=== PATIENT | male | born 1945 | race Hispanic/Latino ===

== ENCOUNTER 2022-06-15 12:33 | Inpatient (IN) | payer OTHER ==
[2022-06-15 13:09] LABS: Absolute Lymphocytes (CBC) 1.4 K/uL (0.7-4.9); Hematocrit 35.9 % (39.6-49.0); Lymphocytes % 17.8 % (15.3-44.8); MCV 93.7 fL (80-100); MPV 8.2 fL (7.6-11.3); RBC Red Blood Cell Count 3.83 M/uL (4.33-5.43)
--- NOTE | 2022-06-15 13:12 | RAD REPORT ---
EXAM DESCRIPTION: RAD - Chest Single View - 06/15/2022 12:55 pm CLINICAL HISTORY: cva COMPARISON: ABDOMEN 1 VIEW KUB dated 03/22/2015 FINDINGS: Lines: None. Lungs: No evidence of edema or pneumonia. Low lung volumes . Pleural: No significant pleural effusions or pneumothorax. Cardiac: The heart size is within normal limits. Mediastinum: Within normal limits. Bones: No acute fractures. Other: None IMPRESSION: No acute cardiopulmonary disease. Low lung volumes.
[2022-06-15 13:15] LABS: Protime INR 1.08
--- NOTE | 2022-06-15 13:16 | RAD REPORT ---
EXAM DESCRIPTION: CT - Head Brain Wo Cont - 06/15/2022 12:45 pm CLINICAL HISTORY: Stroke, follow up COMPARISON: Head angio dated 06/15/2022 TECHNIQUE: All CT scans are performed using dose optimization technique as appropriate and may inclu de automated exposure control or mA/KV adjustment according to patient size. FINDINGS: No intracranial hemorrhage, hydrocephalus or extra-axial fluid collection.No areas of brai n edema or evidence of midline shift. The paranasal sinuses and mastoids are clear. The calvarium is intact. IMPRESSION: No acute intracranial abnormality.
--- NOTE | 2022-06-15 13:22 | RAD REPORT ---
EXAM DESCRIPTION: CT - Head angio - 06/15/2022 12:45 pm CLINICAL HISTORY: Stroke, follow up COMPARISON: No comparisons TECHNIQUE: CT angiography of the head was performed with MIPs. All CT scans are performed using dose optimization technique as appropriate and may include automated exposure control or mA/KV adjustment according to patient size. FINDINGS: Anterior circulation: No aneurysm or large vessel occlusion. No hemodynamically significant stenosis. No arteriovenous malf ormation identified. Hypoplastic right A1 and A2 segment. Posterior circulation: No aneurysm or large vessel occlusion. No hemodynamically significant stenosis. No arteriovenous malf ormation identified. IMPRESSION: No significant flow abnormality is detected.
--- NOTE | 2022-06-15 13:24 | RAD REPORT ---
EXAM DESCRIPTION: CT - Neck Angio - 06/15/2022 12:45 pm CLINICAL HISTORY: Neuro deficit, acute, stroke suspected COMPARISON: No comparisons TECHNIQUE: CT angiography of the neck vessels was performed with MIPs. All CT scans are performed using dose optimization technique as appropriate and may include automated exposure control or mA/KV adjustment according to patient size. FINDINGS: A left aortic arch is identified with normal three vessel configuration of the great vesse ls. No significant flow abnormality is seen of the common carotid bilaterally. Mild atherosclerotic plaqu e is present at both of the carotid bifurcations. No significant stenosis is identified involving the cervical segments of both internal carotid arteri es. Normal flow is seen within both vertebral arteries. Multilevel degenerative changes are present in the spine. IMPRESSION: No significant flow abnormality of the neck vessels is identified.
[2022-06-15 13:29] LABS: Albumin 3.7 g/dL (3.4-5.0); Bilirubin Total 0.6 mg/dL (0.2-1.0); Potassium 3.5 mmol/L (3.5-5.1); Protein, Total 7.1 g/dL (6.4-8.2); Troponin High Sensitivity 8.6 pg/mL (<58.9)
[2022-06-15] MEDS ORDERED: ASPIRIN 325 MG TAB ONE (14:23)
--- NOTE | 2022-06-15 14:30 | EKG ---
Test Date: 2022-06-15 Test Time: 12:50:41 Animal Behaviourist: SAUD MEASUREMENT RESULTS: Intervals: Rate: 77 CO: 188 QRSD: 98 QT: 394 QTc: 445 [place]: P: 48 CO: 188 QRS: -41 T: 54 INTERPRETIVE STATEMENTS: Normal sinus rhythm Left axis deviation Abnormal ECG Compared to ECG 06/25/1999 08:16:00 No significant changes Electronically Signed On 06-15-22 14:30:13 CORPORATE MEETING PLANNER by Luis Alberto Barroso
[2022-06-15] MEDS ORDERED: PROPRANOLOL HCL 80 MG SA CAP PO ONE (15:00)
--- NOTE | 2022-06-15 16:36 | RAD REPORT ---
EXAM DESCRIPTION: US - Extremity Venous Uni Ltd - 06/15/2022 4:29 pm CLINICAL HISTORY: Pain COMPARISON: None. TECHNIQUE: Real-time sonographic evaluation of the right lower extremity deep venous system was perf ormed. FINDINGS: Normal compressibility, flow augmentation, phasic flow and spontaneous flow is identified in the right lower extremity deep venous system. No intraluminal filling defects seen. Guo's cyst a t the popliteal fossa measuring 3.1 x 1.8 cm. IMPRESSION: No DVT in the right lower extremity. Guo's cyst at the popliteal fossa.
[2022-06-15] MEDS ORDERED: HYDROCODONE/APAP 5/325 MG TAB ONE (17:50)
[2022-06-15] MEDS ORDERED: ACETAMINOPHEN 500 MG TAB ONE (18:06)
--- NOTE | 2022-06-15 21:25 | ER ---
Nurse's Notes [facility] Name: Connor Summers Age: 77 yrs Sex: Male : 1945 Arrival Date: 06/15/2022 Time: 12:36 Bed 8 Private MD: Diagnosis: CVA Presentation: 06/15 12:37 Chief complaint: Patient states: States he feels weak, but wants to go home. L sided ll1 weakness per EMS. EMS states: Fingerstick 170's. HTN en route. B 18 G IV's. Code stroke called upon arrival. To CT via EMS stretcher. Coronavirus screen: Vaccine status: Patient reports receiving the 2nd dose of the covid vaccine. Client denies travel out of the [place] in the last 14 days. At this time, the client does not indicate any symptoms associated with coronavirus-19. Ebola Screen: Patient denies travel to an Ebola-affected area in the 21 days before illness onset. Initial Sepsis Screen: Does the patient meet any 2 criteria? No. Patient's initial sepsis screen is negative. Does the patient have a suspected source of infection? No. Patient's initial sepsis screen is negative. Risk Assessment: Do you want to hurt yourself or someone else? Patient reports no desire to harm self or others. Onset of symptoms was June 14, 2022. 12:37 Method Of Arrival: EMS ll1 12:37 Acuity: BRICE 2 ll1 13:16 An acute neurological deficit is present. The charge nurse has been notified. ll1 13:19 The patients blood glucose was checked before arriving to the hospital and was found to ll1 be normal. Triage Assessment: 12:39 General: Appears distressed, uncomfortable, Behavior is cooperative, appropriate for ll1 age, restless. Neuro: Reports weakness in left arm and left leg. Cardiovascular: No deficits noted. Respiratory: No deficits noted. GI: No deficits noted. Stroke Activation: Symptom onset > 6 hours Physician: Stroke Attending; Name: n/a; Notified At: 12:35; Arrived At: N/A Physician: Chief Stroke Resident; Name: n/a; Notified At: 12:35; Arrived At: N/A Physician: Stroke Resident; Name: n/a; Notified At: 12:35; Arrived At: N/A Physician: ED Attending; Name: Ja; Notified At: 12:35; Arrived At: 12:35 Physician: ED Resident; Name: n/a; Notified At: 12:35; Arrived At: N/A Historical: - Allergies: 12:37 HYDROCODONE; ll1 12:37 UNKNOWN MUSCLE RELAXANT; ll1 - PMHx: 12:37 Diabetes - NIDDM; Hypertension; ll1 - PSHx: 12:37 Unable to Obtain; ll1 - Immunization history:: Adult Immunizations up to date. - Social history:: Smoking status: Patient denies any tobacco usage or history of. - Family history:: not pertinent. Screenin:39 Abuse screen: Denies threats or abuse. Nutritional screening: No deficits noted. ll1 Tuberculosis screening: No symptoms or risk factors identified. Assessment: 13:14 VAN Scoring: Arm Drift: Severe drift Visual Disturbance: No visual disturbance noted. ll1 Aphasia: No aphasia noted. Neglect: No neglect noted. Patient has been NPO before screening. The patient is alert, and able to follow commands. The patient does not exhibit slurred or garbled speech. The patient is not exhibiting difficulty speaking. The patient does not exhibit difficulty understanding words. The patient is able to swallow own secretions with no drooling or need for suction. Patient tolerated one teaspoon of water. No drooling, immediate coughing, gurgling, or clearing of the throat was noted. The patient tolerated 90mL of water. No drooling, immediate coughing, gurgling, or clearing of the throat was noted. The patient passed the bedside swallow screening. Oral medications may be given as ordered. Contact Physician for further diet orders. Provider notified of bedside swallow screening results: David Peres MD. TNKase (Tenecteplase) Screening: Contraindications: Patient reports onset of signs and symptoms of stroke greater than 6 hours ago:. 14:15 Reassessment: No changes from previously documented assessment. Patient and/or family ll1 updated on plan of care and expected duration. Pain level reassessed. Patient is alert, oriented x 3, equal unlabored respirations, skin warm/dry/pink. 15:15 Reassessment: No changes from previously documented assessment. Patient and/or family ll1 updated on plan of care and expected duration. Pain level reassessed. 16:15 Reassessment: No changes from previously documented assessment. Patient and/or family ll1 updated on plan of care and expected duration. Pain level reassessed. 17:15 Reassessment: No changes from previously documented assessment. Patient and/or family ll1 updated on plan of care and expected duration. Pain level reassessed. Patient is alert, oriented x 3, equal unlabored respirations, skin warm/dry/pink. 18:15 Reassessment: No changes from previously documented assessment. Patient and/or family ll1 updated on plan of care and expected duration. Pain level reassessed. 19:10 Reassessment: Patient appears in no apparent distress at this time. Patient and/or jb4 family updated on plan of care and expected duration. Pain level reassessed. Patient is alert, oriented x 3, equal unlabored respirations, skin warm/dry/pink. 20:29 Reassessment: Pt and family report that pt range of motion and strength is back to jb4 baseline. 21:19 Reassessment: Patient appears in no apparent distress at this time. Patient and/or jb4 family updated on plan of care and expected duration. Pain level reassessed. Patient is alert, oriented x 3, equal unlabored respirations, skin warm/dry/pink. 22:00 Reassessment: Patient appears in no apparent distress at this time. Patient and/or jb4 family updated on plan of care and expected duration. Pain level reassessed. Patient is alert, oriented x 3, equal unlabored respirations, skin warm/dry/pink. 23:00 Reassessment: Patient appears in no apparent distress at this time. Patient and/or jb4 family updated on plan of care and expected duration. Pain level reassessed. Patient is alert, oriented x 3, equal unlabored respirations, skin warm/dry/pink. Vital Signs: 13:11 BP 152 / 107; Pulse 80; Resp 18; Temp 98.0; Pulse Ox 96% ; Pain 0/10; ll1 14:30 BP 170 / 107; Pulse 77; Resp 17; Pulse Ox 97% on R/A; ll1 15:30 BP 143 / 63; Pulse 71; Resp 17; Pulse Ox 98% on R/A; ll1 16:15 BP 159 / 78; Pulse 71; Resp 17; Pulse Ox 97% on R/A; ll1 17:36 BP 151 / 69; Pulse 66; Resp 17; Pulse Ox 96% on R/A; ll1 18:24 BP 136 / 68; Pulse 64; Resp 17; Pulse Ox 98% ; ll1 19:15 BP 140 / 67; Pulse 62; Resp 13; Pulse Ox 98% on R/A; jb4 20:45 BP 135 / 68; Pulse 58; Resp 13; Pulse Ox 97% on R/A; jb4 06/16 00:51 Weight 97.52 kg; vc1 12:44 BP 155 / 72; Pulse 67; Resp 18; Pulse Ox 99% on R/A; ld1 NIH Stroke Scale Scores: 06/15 13:14 NIHSS Score: 10 ll1 20:29 NIHSS Score: 3 jb4 ED Course: 12:36 Patient arrived in ED. bd 12:36 David Peres MD is Attending Physician. rt 12:36 Arm band placed on Patient placed in an exam room, on a stretcher. ll1 12:39 Triage completed. ll1 12:46 Head Brain Wo Cont CT In Process Unspecified. EDMS 12:46 Elizabeth Decker, RN is Primary Nurse. ll1 12:47 CT Head Angio In Process Unspecified. EDMS 12:47 CT Neck Angio In Process Unspecified. EDMS 12:57 Chest Single View XRAY In Process Unspecified. EDMS 13:00 Inserted saline lock: 22 gauge in right antecubital area, using aseptic technique. ll1 Blood collected. 13:19 Patient has correct armband on for positive identification. Bed in low position. Call ll1 light in reach. Side rails up X2. Client placed on continuous cardiac and pulse oximetry monitoring. NIBP monitoring applied. quality assurance monitor on. 15:45 intiated transfer to [place] [facility]. bd 15:52 faxed clinicals to [place] [facility] as requested by Fabiana from transfer center. bd 16:31 US Extremity Venous Unilateral Ltd In Process Unspecified. EDMS 19:12 Attending Physician role handed off by David Peres MD sp3 19:12 Lisandra Macias MD is Attending Physician. sp3 20:15 Contacted the [facility] spoke with Bee to get an update on the transfer. She mw2 stated "we are waiting for the doctor to call back.". 21:23 Oleksandr Guerra MD is Hospitalizing Provider. sp3 06/16 12:43 No provider procedures requiring assistance completed. Patient admitted, IV remains in ld1 place. Administered Medications: 06/15 14:34 Drug: Aspirin 325 mg Route: PO; ll1 18:01 Follow up: Response: No adverse reaction ll1 14:34 Drug: INDeral (propranolol) 80 mg Route: PO; ll1 18:01 Follow up: Response: No adverse reaction ll1 17:50 CANCELLED (Patient Refused): [place] (HYDROcodone-acetaminophen) 5 mg-325 mg 1 tabs PO rt once 18:07 Drug: Tylenol 1000 mg Route: PO; ll1 Medication: 12:40 VIS not applicable for this client. ll1 Outcome: 21:24 Decision to Hospitalize by Provider. sp3 06/16 12:43 Admitted to Med/surg accompanied by tech, via wheelchair, room 230, with chart, Report ld1 called to ARTHUR Tejada Condition: stable Instructed on the need for admit. 13:01 Patient left the ED. mb9 NIH Stroke Scale - NIH Stroke Score Date: 06/15/2022 Time: 13:14 Total Score = 10 1a. Level of Consciousness (LOC) - 0(Alert) 1b. Level of Consciousness (LOC) (Month \\T\\ Age) - 0(Both) 1c. LOC Commands (Open \\T\\ Closes Eyes/Returned Goods Receiving Clerk) - 0(Both) 2. Best Gaze (Lateral Gaze Paresis) - 0(Normal) 3. Visual Field Loss - 0(No visual loss) 4. Facial Palsy - 1(Minor Paralysis) 5a. Left Arm: Motor (10-second hold) - 3(No effort against gravity) 5b. Right Arm: Motor (10-second hold) - 0(No drift) 6a. Left Leg: Motor (5-second hold - always test supine) - 3(No effort against gravity) 6b. Right Leg: Motor (5-second hold - always test supine) - 0(No drift) 7. Limb Ataxia (finger/nose \\T\\ heel/guzmán - test with eyes open) - 1(Present in one limb) 8. Sensory Loss (pinprick arms/legs/face) - 1(Mild to moderate loss) 9. Best Language: Aphasia (description/naming/reading) - 0(No aphasia) 10. Dysarthria (speech clarity - read or repeat words) - 0(Normal) 11. Extinction and Inattention (visual/tactile/auditory/spatial/personal) - 1(Present) Initials: ll1 NIH Stroke Scale - NIH Stroke Score Date: 06/15/2022 Time: 20:29 Total Score = 3 1a. Level of Consciousness (LOC) - 0(Alert) 1b. Level of Consciousness (LOC) (Month \\T\\ Age) - 0(Both) 1c. LOC Commands (Open \\T\\ Closes Eyes/Returned Goods Receiving Clerk) - 0(Both) 2. Best Gaze (Lateral Gaze Paresis) - 0(Normal) 3. Visual Field Loss - 0(No visual loss) 4. Facial Palsy - 2(Partial paralysis) 5a. Left Arm: Motor (10-second hold) - 0(No drift) 5b. Right Arm: Motor (10-second hold) - 0(No drift) 6a. Left Leg: Motor (5-second hold - always test supine) - 0(No drift) 6b. Right Leg: Motor (5-second hold - always test supine) - 0(No drift) 7. Limb Ataxia (finger/nose \\T\\ heel/guzmán - test with eyes open) - 0(Absent) 8. Sensory Loss (pinprick arms/legs/face) - 1(Mild to moderate loss) 9. Best Language: Aphasia (description/naming/reading) - 0(No aphasia) 10. Dysarthria (speech clarity - read or repeat words) - 0(Normal) 11. Extinction and Inattention (visual/tactile/auditory/spatial/personal) - 0(No abnormality) Initials: jb4 Signatures: Dispatcher [employer] EDMS Shelia Warner James RN RN jb4 Rafal Quiñones mw2 Elizabeth Decker RN RN ll1 Maria Elena Gautam RN RN ld1 Lisandra Macias MD MD sp3 Christine Cifuentes RN RN vc1 Beatriec Trotter RN RN mb9 David Peres MD MD rt Corrections: (The following items were deleted from the chart) 12:45 12:21 BP 82 / 48; Pulse 101bpm; Resp 18bpm; Pulse Ox 99% RA; ld1 ld1
--- NOTE | 2022-06-15 21:25 | EDPHYS ---
Physician Documentation [facility] Name: Connor Summers Age: 77 yrs Sex: Male : 1945 Arrival Date: 06/15/2022 Time: 12:36 Bed 8 Private MD: ED Physician Lisandra Macias HPI: 06/15 14:18 This 77 yrs old Male presents to ER via EMS with complaints of S/S of Possible rt Stroke. 14:18 The patient's problem is reported as a facial droop, on left. Onset: The rt symptoms/episode began/occurred last night. Duration: This was a single incident. The symptoms are alleviated by nothing. The symptoms are aggravated by nothing. Associated signs and symptoms: The patient has no apparent associated signs or symptoms. Severity of symptoms: At their worst the symptoms were moderate. Presents to the ED with signs concerning for stroke. Patient developed a left-sided facial droop as well as drooling last night. Is a progressively worsening left-sided weakness since then. Patient denies other acute complaints at this time. Symptoms are moderate severity, no other aggravating alleviating factors.. Historical: - Allergies: 12:37 HYDROCODONE; ll1 12:37 UNKNOWN MUSCLE RELAXANT; ll1 - PMHx: 12:37 Diabetes - NIDDM; Hypertension; ll1 - PSHx: 12:37 Unable to Obtain; ll1 - Immunization history:: Adult Immunizations up to date. - Social history:: Smoking status: Patient denies any tobacco usage or history of. - Family history:: not pertinent. ROS: 14:18 Constitutional: Negative for fever, chills, and weight loss, Eyes: Negative for injury, rt pain, redness, and discharge, ENT: Negative for injury, pain, and discharge, Neck: Negative for injury, pain, and swelling, Cardiovascular: Negative for chest pain, palpitations, and edema, Respiratory: Negative for shortness of breath, cough, wheezing, and pleuritic chest pain, MS/Extremity: Negative for injury and deformity, Skin: Negative for injury, rash, and discoloration, Psych: Negative for depression, anxiety, suicide ideation, homicidal ideation, and hallucinations. 14:18 Neuro: Positive for numbness, weakness. Exam: 14:18 Radiologist reports: No bleed or filling defect. rt 14:18 Constitutional: This is a well developed, well nourished patient who is awake, alert, and in no acute distress. Head/Face: Normocephalic, atraumatic. Eyes: Pupils equal round and reactive to light, extra-ocular motions intact. Lids and lashes normal. Conjunctiva and sclera are non-icteric and not injected. Cornea within normal limits. Periorbital areas with no swelling, redness, or edema. ENT: Nares patent. No nasal discharge, no septal abnormalities noted. Tympanic membranes are normal and external auditory canals are clear. Oropharynx with no redness, swelling, or masses, exudates, or evidence of obstruction, uvula midline. Mucous membranes moist. Neck: Trachea midline, no thyromegaly or masses palpated, and no cervical lymphadenopathy. Supple, full range of motion without nuchal rigidity, or vertebral point tenderness. No Meningismus. Chest/axilla: Normal chest wall appearance and motion. Nontender with no deformity. No lesions are appreciated. Cardiovascular: Regular rate and rhythm with a normal S1 and S2. No gallops, murmurs, or rubs. Normal PMI, no JVD. No pulse deficits. Respiratory: Lungs have equal breath sounds bilaterally, clear to auscultation and percussion. No rales, rhonchi or wheezes noted. No increased work of breathing, no retractions or nasal flaring. Abdomen/GI: Soft, non-tender, with normal bowel sounds. No distension or tympany. No guarding or rebound. No evidence of tenderness throughout. Skin: Warm, dry with normal turgor. Normal color with no rashes, no lesions, and no evidence of cellulitis. MS/ Extremity: Pulses equal, no cyanosis. Neurovascular intact. Full, normal range of motion. Psych: Awake, alert, with orientation to person, place and time. Behavior, mood, and affect are within normal limits. 14:18 ECG was reviewed by the Attending Physician. 14:18 Neuro: Left-sided facial droop, left-sided numbness,/5 strength in left upper and left lower extremity with sensory deficits on the extra extremities, strength intact in right upper and right lower extremities.. Vital Signs: 13:11 BP 152 / 107; Pulse 80; Resp 18; Temp 98.0; Pulse Ox 96% ; Pain 0/10; ll1 14:30 BP 170 / 107; Pulse 77; Resp 17; Pulse Ox 97% on R/A; ll1 15:30 BP 143 / 63; Pulse 71; Resp 17; Pulse Ox 98% on R/A; ll1 16:15 BP 159 / 78; Pulse 71; Resp 17; Pulse Ox 97% on R/A; ll1 17:36 BP 151 / 69; Pulse 66; Resp 17; Pulse Ox 96% on R/A; ll1 18:24 BP 136 / 68; Pulse 64; Resp 17; Pulse Ox 98% ; ll1 19:15 BP 140 / 67; Pulse 62; Resp 13; Pulse Ox 98% on R/A; jb4 20:45 BP 135 / 68; Pulse 58; Resp 13; Pulse Ox 97% on R/A; jb4 06/16 00:51 Weight 97.52 kg; vc1 12:44 BP 155 / 72; Pulse 67; Resp 18; Pulse Ox 99% on R/A; ld1 NIH Stroke Scale Scores: 06/15 13:14 NIHSS Score: 10 ll1 20:29 NIHSS Score: 3 jb4 MDM: 12:39 Patient medically screened. rt 14:28 Differential diagnosis: CVA, TIA, metabolic disorder, drug effects. Data reviewed: rt vital signs, nurses notes, lab test result(s), EKG, radiologic studies. 14:28 ED course: Presents to the ED with signs, symptoms consistent with a stroke. Symptoms rt started last night, he is outside of the window for tPA. There is no large vessel occlusion noted on imaging. Patient will be admitted here or transfer to the OR for further care. Aspirin will be given.. 20:12 ED course: Patient signed out to me by daytime physician. 77-year-old male who sp3 presented with left-sided motor weakness and facial droop on the left side as well. Initial NIH stroke scale was 10. CT head and angiogram demonstrated no acute abnormality. We are attempting to get him to the OR hospital and are waiting to hear back. Repeat stroke scale will be administered by the nursing staff to continue his assessment.. 06/15 12:39 Order name: CBC with Diff; Complete Time: 13:24 rt 06/15 12:39 Order name: CMP; Complete Time: 13:31 rt 06/15 12:39 Order name: Troponin High Sensitivity; Complete Time: 13:31 rt 06/15 12:39 Order name: PT-INR; Complete Time: 13:24 rt 06/15 12:39 Order name: Ptt, Activated; Complete Time: 13:24 rt 06/15 13:01 Order name: CREATININE WHOLE BLOOD; Complete Time: 13:24 EDMS 06/16 00:49 Order name: SARS RAPID vc1 06/16 00:51 Order name: Glucose, Ancillary Testing EDMS 06/16 01:38 Order name: SARS-COV-2 Antigen Rapid EDMS 06/16 04:54 Order name: CBC with Automated Diff EDMS 06/16 05:16 Order name: Hemoglobin A1c EDMS 06/16 05:20 Order name: Comprehensive Metabolic Panel EDMS 06/16 05:20 Order name: Lipid Profile EDMS 06/15 12:38 Order name: Head Brain Wo Cont CT; Complete Time: 13:24 rt 06/15 12:38 Order name: CT Head Angio; Complete Time: 13:24 rt 06/15 12:38 Order name: CT Neck Angio; Complete Time: 13:31 rt 06/15 12:39 Order name: Chest Single View XRAY; Complete Time: 13:24 rt 06/15 15:32 Order name: US Extremity Venous Unilateral Ltd; Complete Time: 16:41 rt 06/16 05:20 Order name: T4 Free EDMS 06/16 05:20 Order name: Thyroid Stimulating Hormone EDMS 06/16 07:32 Order name: Glucose, Ancillary Testing EDMS 06/16 09:56 Order name: MRI EDMS 06/16 09:56 Order name: MRI EDMS 06/16 09:56 Order name: MRI EDMS 06/16 11:57 Order name: Glucose, Ancillary Testing EDMS 06/15 12:39 Order name: EKG; Complete Time: 12:39 rt 06/15 12:39 Order name: EKG - Nurse/Tech; Complete Time: 13:11 rt EC:18 Rate is 77 beats/min. Rhythm is regular, Normal Sinus Rhythm with No ectopy. Left axis rt deviation noted. [place] interval is normal. QRS interval is normal. QT interval is normal. No Q waves. T waves are Normal. No ST changes noted. Administered Medications: 14:34 Drug: Aspirin 325 mg Route: PO; ll1 18:01 Follow up: Response: No adverse reaction ll1 14:34 Drug: INDeral (propranolol) 80 mg Route: PO; ll1 18:01 Follow up: Response: No adverse reaction ll1 17:50 CANCELLED (Patient Refused): [place] (HYDROcodone-acetaminophen) 5 mg-325 mg 1 tabs PO rt once 18:07 Drug: Tylenol 1000 mg Route: PO; ll1 Disposition Summary: 06/15/22 21:24 Hospitalization Ordered Hospitalization Status: Inpatient Admission sp3 Provider: Oleksandr Guerra sp3 Condition: Stable sp3 Problem: new sp3 Symptoms: are unchanged sp3 Bed/Room Type: Standard sp3 Location: Telemetry/MedSurg (Inpatient)(06/16/22 12:12) bd Room Assignment: 230(06/16/22 12:12) bd Diagnosis - CVA sp3 Discharge Instructions: - Discharge Summary Sheet ll1 Forms: - SBAR form ll1 - Medication Reconciliation Form sp3 NIH Stroke Scale - NIH Stroke Score Date: 06/15/2022 Time: 13:14 Total Score = 10 1a. Level of Consciousness (LOC) - 0(Alert) 1b. Level of Consciousness (LOC) (Month \T\ Age) - 0(Both) 1c. LOC Commands (Open \T\ Closes Eyes/Driver Engineer) - 0(Both) 2. Best Gaze (Lateral Gaze Paresis) - 0(Normal) 3. Visual Field Loss - 0(No visual loss) 4. Facial Palsy - 1(Minor Paralysis) 5a. Left Arm: Motor (10-second hold) - 3(No effort against gravity) 5b. Right Arm: Motor (10-second hold) - 0(No drift) 6a. Left Leg: Motor (5-second hold - always test supine) - 3(No effort against gravity) 6b. Right Leg: Motor (5-second hold - always test supine) - 0(No drift) 7. Limb Ataxia (finger/nose \T\ heel/guzmán - test with eyes open) - 1(Present in one limb) 8. Sensory Loss (pinprick arms/legs/face) - 1(Mild to moderate loss) 9. Best Language: Aphasia (description/naming/reading) - 0(No aphasia) 10. Dysarthria (speech clarity - read or repeat words) - 0(Normal) 11. Extinction and Inattention (visual/tactile/auditory/spatial/personal) - 1(Present) Initials: ll1 NIH Stroke Scale - NIH Stroke Score Date: 06/15/2022 Time: 20:29 Total Score = 3 1a. Level of Consciousness (LOC) - 0(Alert) 1b. Level of Consciousness (LOC) (Month \T\ Age) - 0(Both) 1c. LOC Commands (Open \T\ Closes Eyes/Driver Engineer) - 0(Both) 2. Best Gaze (Lateral Gaze Paresis) - 0(Normal) 3. Visual Field Loss - 0(No visual loss) 4. Facial Palsy - 2(Partial paralysis) 5a. Left Arm: Motor (10-second hold) - 0(No drift) 5b. Right Arm: Motor (10-second hold) - 0(No drift) 6a. Left Leg: Motor (5-second hold - always test supine) - 0(No drift) 6b. Right Leg: Motor (5-second hold - always test supine) - 0(No drift) 7. Limb Ataxia (finger/nose \T\ heel/guzmán - test with eyes open) - 0(Absent) 8. Sensory Loss (pinprick arms/legs/face) - 1(Mild to moderate loss) 9. Best Language: Aphasia (description/naming/reading) - 0(No aphasia) 10. Dysarthria (speech clarity - read or repeat words) - 0(Normal) 11. Extinction and Inattention (visual/tactile/auditory/spatial/personal) - 0(No abnormality) Initials: jb4 Signatures: Dispatcher [employer] EDMS Shelia Warner Lynsay, RN RN ll1 Lisandra Macias MD MD sp3 Christine Cifuentes RN RN vc1 David Peres MD MD rt Corrections: (The following items were deleted from the chart) 17:50 17:48 [place] (HYDROcodone-acetaminophen) 5 mg-325 mg 1 tabs PO once ordered. ll1 rt 21:50 21:24 Telemetry/MedSurg (Inpatient) sp3 vc1 21:50 21:24 sp3 vc1 22:38 13:35 SARS-COV-2 Antigen Rapid+I.LAB.BRZ ordered. EDCA EDMS 06/16 12:12 06/15 21:50 BR ER HOLD vc1 bd 06/16 12:12 06/15 21:50 ERHOLD- vc1 bd
[2022-06-15] MEDS ORDERED: ONDANSETRON 4 MG/2 ML VIAL IV PRN (23:08)
--- NOTE | 2022-06-15 23:10 | P.HP ---
Certification for Inpatient Patient admitted to: Observation With expected LOS: <2 Midnights Patient will require the following post-hospital care: None Practitioner: I am a practitioner with admitting privileges, knowledge of patient current condition, hospital course, and medical plan of care. Services: Services provided to patient in accordance with Admission requirements found in Title 42 Section 412.3 of the Code of Federal Regulations <AustynjigneshAbdoulaye Eng - Last Filed: 06/15/22 23:06> Patient History Date of Service: 06/15/22 Reason for admission: Rule out CVA History of Present Illness: 77-year-old male with history of [id number]-bxowetyvo diabetes, hypertension, hyperlipidemia presented to the emergency department for left facial weakness, left upper and lower extremity weakness. He reported that the left-sided facial weakness began at approximately noon on 06/14/2022, he developed a left upper and lower extremity weakness today prior to arrival to the emergency department. CT head without contrast was negative for acute findings, CT head and neck angio were negative for any large vessel occlusions. Venous ultrasound of the right lower extremity was negative for DVT but did show a Guo's cyst in the popliteal fossa. Chest x-ray negative for acute findings. His labs were significant for mild AFSHIN with creatinine 1.67, GFR 42, BUN 30. Initially attempts were made to transfer to the [place] but they denied due to capacity. ED provider wishes to admit for further valuation and management of left-sided facial weakness, rule out CVA. Patient's NIH is currently 1 - Past Medical/Surgical History -: Diabetes mellitus type [id number] -: Hypertension -: Hyperlipidemia -: Hernia repair -: Parathyroid removal -: Cataracts Psychosocial/ Personal History: Patient is retired and lives at home with his - Family History Brother -: Diabetes - Social History Smoking Status: Never smoker Alcohol use: No CD- Drugs: No Caffeine use: Yes Place of Residence: Home <Abdoulaye Angelo - Last Filed: 06/15/22 23:06> Date of Service: 06/16/22 <Oleksandr Guerra - Last Filed: 06/16/22 14:38> Allergies hydrocodone Allergy (Unverified 06/16/22 14:23) Itching Unknown muscle relaxant Allergy (Uncoded 06/16/22 14:23) Itching Review of Systems 10-point ROS is otherwise unremarkable Neurological: Weakness, As per HPI <Abdoulaye Angelo - Last Filed: 06/15/22 23:06> Physical Examination - Physical Exam General: Alert, In no apparent distress, Oriented x3 HEENT: Atraumatic, PERRLA, Mucous membr. moist/pink, EOMI, Sclerae nonicteric Neck: Supple, 2+ carotid pulse no bruit, No LAD, Without JVD or thyroid abnormality Respiratory: Clear to auscultation bilaterally, Normal air movement Cardiovascular: Regular rate/rhythm, Normal S1 S2 Gastrointestinal: Normal bowel sounds, No tenderness Musculoskeletal: No tenderness Integumentary: No rashes Neurological: Normal speech, Normal strength at 5/5 x4 extr, Normal tone, Normal affect, Abnormal sensation (Patient reports baseline neuropathy in bilateral upper and lower extremities without significant change) Lymphatics: No axilla or inguinal lymphadenopathy - Studies Laboratory Data (last 24 hrs) 06/15/22 13:00: PT 11.9, INR 1.08, APTT 28.9 06/15/22 13:00: Sodium 142, Potassium 3.5, BUN 30 H, Creatinine 1.67 H, Glucose 151 H, Total Bilirubin 0.6, AST 25, ALT 31, Alkaline Phosphatase 95 06/15/22 13:00: WBC 8.00, Hgb 12.2 L, Hct 35.9 L, Plt Count 139 L <Abdoulaye Angelo - Last Filed: 06/15/22 23:06> - Studies Laboratory Data (last 24 hrs) 06/16/22 04:40: Sodium 143, Potassium 3.6, BUN 23 H, Creatinine 1.37 H, Glucose 121 H, Total Bilirubin 0.6, AST 17, ALT 25, Alkaline Phosphatase 68 D, Triglycerides 100, Cholesterol 85, HDL Cholesterol 36 L, Cholesterol/HDL Ratio 2.36 06/16/22 04:40: WBC 5.90, Hgb 10.9 L D, Hct 32.2 L, Plt Count 117 L <Oleksandr Guerra - Last Filed: 06/16/22 14:38> Assessment and Plan - Plan Assessment: Left-sided facial weaknesssuspect ischemic CVA Diabetes mellitus type [id number] AFSHIN Hypertension Hyperlipidemia Plan: Left-sided facial weaknesssuspect ischemic CVA: MRI, echocardiogram, carotid Doppler, neurology consult, PT/OT/speech therapy, neurochecks ordered. Continue with aspirin, statin, folic acid. NIH currently 1 with left-sided facial weakness. Was out of the window for TNK given time of symptom onset, no LVO. Diabetes mellitus type [id number]: A1c in the morning, mild sliding scale insulin. AFSHIN: Continue fluids overnight, consider nephrology consult if worsening. Hypertension: Obtain and continue medications as appropriate. Hyperlipidemia: Continue home meds. DVT PPX: Lovenox Code status: Full Discharge Plan: Home Plan to discharge in: 24 Hours - Advance Directives Does patient have a Living Will: No Does patient have a Durable POA for Healthcare: No - Code Status/Comfort Care Code Status Assessed: Yes (Full code) Critical Care: No Time Spent Managing Pts Care (In Minutes): 55 <Abdoulaye Angelo - Last Filed: 06/15/22 23:06> Physician Review: Patient Assessed, Agree with Above Assessment and Plan <Oleksandr Guerra - Last Filed: 06/16/22 14:38>
[2022-06-16] MEDS ORDERED: Ringers Lactate 1,000 ML IV ONE (00:57)
[2022-06-16] MEDS: Ringers Lactate 1,000 ML IV SCH ×3 (01:08→14:44)
[2022-06-16 01:20] VITALS: BMI 27.6
[2022-06-16 01:38] LABS: SARS-CoV-2 Antigen Rapid Res Negative (Negative)
[2022-06-16 04:50] LABS: Absolute Lymphocytes (CBC) 1.5 K/uL (0.7-4.9); Hematocrit 32.2 % (39.6-49.0); Lymphocytes % 25.1 % (15.3-44.8); MCV 93.2 fL (80-100); RBC Red Blood Cell Count 3.46 M/uL (4.33-5.43)
[2022-06-16 05:11] LABS: Albumin 3.4 g/dL (3.4-5.0); Bilirubin Total 0.6 mg/dL (0.2-1.0); Potassium 3.6 mmol/L (3.5-5.1); Protein, Total 6.5 g/dL (6.4-8.2); Thyroid Stimulating Hormone 3.57 uIU/mL (0.358-3.740)
[2022-06-16] MEDS: INSULIN -REGULAR HUMAN 50 UNIT/0.5 ML ML SQ SCH ×4 (07:30→20:18)
[2022-06-16] MEDS ORDERED: ASPIRIN EC 81 MG TAB PO ONE (07:51)
[2022-06-16] MEDS ORDERED: HEPARIN 5000 UNIT/ML 1 ML VIAL ONE (07:51)
[2022-06-16] MEDS ORDERED: FOLIC ACID 1 MG TABLET ONE (07:51)
[2022-06-16] MEDS ORDERED: PNEUMOCOCCAL VACCINE 0.5 ML IMVAC ONE ×2 (07:52→08:00)
[2022-06-16] MEDS: FOLIC ACID 1 MG TABLET PO SCH (08:43)
[2022-06-16] MEDS: HEPARIN 5000 UNIT/ML 1 ML VIAL SQ SCH ×2 (08:43→20:21)
[2022-06-16] MEDS ORDERED: ASPIRIN EC 81 MG TAB PO SCH (09:00)
--- NOTE | 2022-06-16 09:56 | RAD REPORT ---
EXAM DESCRIPTION: MRI - Brain W/Wo Cont - 06/16/2022 8:29 am CLINICAL HISTORY: Left facial weakness, suspected cva COMPARISON: MRA Head Wo Cont dated 06/16/2022; Head Brain Wo Cont dated 06/15/2022, CT head 06/15/2022 TECHNIQUE: Sagittal and axial T1-weighted images were obtained. Axial PD/heavily T2-weighted and T2- FLAIR images were obtained along with axial DWI/ADC mapping sequences. Coronal heavily T2 weighted s equence obtained. Axial and coronal post-contrast T1-weighted images were also obtained. A 20 ml Mul tihance contrast following utilized. FINDINGS: No intracranial hemorrhage, mass or acute infarction. There is no edema or shift of midli ne structures. No extra-axial fluid collections. Molina-matter/white matter junction is preserved. Sig nal voids are seen as a normal finding in the major intracranial vessels. Patient has mild cerebral a trophy with ventricles in proportion. Mild chronic ischemic changes are seen in the cerebral white ma tter. Post-contrast images show normal enhancement. No dural thickening. Mastoid air cells and paranasal sinuses are clear. Final written report was delayed due to a malfunctioning pyroglazer system. IMPRESSION: No acute or subacute infarction change. No acute intracranial finding. Patient has mild atrophy and mild cerebral white matter chronic ischemic change.
--- NOTE | 2022-06-16 09:56 | RAD REPORT ---
EXAM DESCRIPTION: MRI - MRA Neck W/Wo Cont - 06/16/2022 8:29 am CLINICAL HISTORY: Left-sided weakness, dizziness, CVA COMPARISON: Carotid ultrasound same date TECHNIQUE: MR angiography of the cervical vasculature performed. Coronal imaging plane acquisition u tilized. A 20 MultiHance contrast volume was utilized. Coronal reformatted images were generated and reviewed. Vertical axis 3D rotational projections obtained using maximum intensity projection protoco l. FINDINGS: Aortic arch is 3 vessel configuration. No stenosis at the great vessel origins or origins of either codominant vertebral artery. There is tortuosity. The bilateral common carotid and internal carotid arteries show no significant luminal narrowing. The mild plaquing changes seen at sonography do not manifest as a MRA neck abnormality. No dissection seen. No focal abnormality of either verteb ral artery. There is focal long length narrowing of the left external carotid artery. External carotid artery lg noses, if true, are generally not clinically significant. Final written report was delayed due to a malfunctioning case briefer system. IMPRESSION: MRA neck examination shows no significant or suspicious finding.
--- NOTE | 2022-06-16 09:56 | RAD REPORT ---
EXAM DESCRIPTION: MRI - MRA Head Wo Cont - 06/16/2022 8:29 am CLINICAL HISTORY: CVA, left-sided weakness, dizziness COMPARISON: MRI brain same date, CT head 06/15/2022 TECHNIQUE: Axial and coronal 3D [id number] image acquisition was performed. 3D rotational images were generated with source and reconstruction images reviewed. Horizontal and vertical axis rotation al views generated using MIP protocol. FINDINGS: No aneurysm or vascular malformation. There is no named branch occlusion, vasculitis or ot her suspicious vascular finding. There is tortuosity that is mild in the vertebrobasilar vasculature. The vessels are otherwise unremarkable. Patient has an azygos configuration of the anterior cerebral artery circulation. This is a normal anatomic variant. Major venous sinuses are patent. Final written report was delayed due to malfunctioning custom shop worker system. IMPRESSION: MRA head examination shows no significant or suspicious finding.
[2022-06-16] MEDS ORDERED: INFLUENZA VACCINE (for 6+ mo) 0.5 ML DOSE IMVAC ONE (11:00)
[2022-06-16] MEDS: levETIRAcetam 500 MG TAB PO SCH ×2 (14:44→20:21)
--- NOTE | 2022-06-16 14:44 | P.PN ---
Subjective Date of Service: 06/16/22 Chief Complaint: Rule out CVA His neurologic symptoms have improved significantly since admission. He reports persistent left-sided facial paresis. He also endorses bilateral upper extremity numbness from the hand to the elbow and bilateral lower extremity numbness from the feet to the knees. He states that this is a long-standing neuropathy, which has been evaluated by his outside physician. Review of Systems 10-point ROS is otherwise unremarkable Neurological: Numbness, Other (left-sided facial paresis) Physical Examination - Vital Signs Temperature: 98.1 F Blood Pressure: 155/72 Pulse: 67 Respirations: 18 Pulse Ox (%): 97 - Physical Exam General: Alert, In no apparent distress, Oriented x3 HEENT: Atraumatic, Mucous membr. moist/pink, EOMI, Sclerae nonicteric Neck: JVD not distended Respiratory: Clear to auscultation bilaterally, Normal air movement Cardiovascular: No edema, Regular rate/rhythm, Normal S1 S2, No gallops, No rubs, No murmurs Gastrointestinal: Normal bowel sounds, Soft and benign, Non-distended, No tenderness, No rebound, No guarding Musculoskeletal: No clubbing Integumentary: No rashes Neurological: Normal speech, Normal tone, Cranial nerves 3-12 intact, Normal affect, Abnormal strength (4/5 strength in all extremities), Abnormal sensation (numbness in bilateral hands up to elbow and bilateral feet up to knees) - Studies Laboratory Data (last 24 hrs) 06/16/22 04:40: Sodium 143, Potassium 3.6, BUN 23 H, Creatinine 1.37 H, Glucose 121 H, Total Bilirubin 0.6, AST 17, ALT 25, Alkaline Phosphatase 68 D, Triglycerides 100, Cholesterol 85, HDL Cholesterol 36 L, Cholesterol/HDL Ratio 2.36 06/16/22 04:40: WBC 5.90, Hgb 10.9 L D, Hct 32.2 L, Plt Count 117 L Assessment And Plan - Plan NIH Stroke Scale 1a. Level of consciousness: 0 - Alert; keenly responsive 1b. LOC questions: 0 - Both questions right 1c. LOC commands: 0 - Performs both tasks 2. Best Gaze: 0 - Normal 3. Visual: 0 - No visual loss 4. Facial Palsy: 2 - Partial paralysis (lower face) 5a. Motor left arm: 0 - No drift for 10 seconds 5b. Motor right arm: 0 - No drift for 10 seconds 6a. Motor left le - No drift for 5 seconds 6b. Motor right le - No drift for 5 seconds 7. Limb ataxia: 0 - No ataxia 8. Sensory: 1 - mild to moderate loss: can sense being touched 9. Best Language: 0 - Normal; no aphasia 10. Dysarthria: 0 - Normal 11. Extinction and Inattention: 0 - No abnormality 12. 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 Given this history, I suspect that he may have had a seizure with Brian's paralysis. However, he has several risk factors for CVA including diabetes, hypertension, and hyperlipidemia. - Consulted Neurology and spoke with Dr. Cuellar - recommendations appreciated - Recommended aspirin, folic acid, clopidogrel, atorvastatin, and levetiracetam - NIHSS = 3 - Allow permissive hypertension for today - q4hr neurochecks - CT head = " No acute intracranial abnormality." - CT head angiogram = "No significant flow abnormality is detected." - CT neck angiogram = "No significant flow abnormality of the neck vessels is identified" - MRI brain = "No acute or subacute infarction change. No acute intracranial finding. Patient has mild atrophy and mild cerebral white matter chronic ischemic change." - MR head angiogram = "MRA head examination shows no significant or suspicious finding." - MR neck angiogram = "MRA neck examination shows no significant or suspicious finding." - Ordered transthoracic echocardiogram + EEG - PT/OT/POKER ROOM MANAGER evaluation requested - Ordered risk profile: - Hgb A1c = 5.8 % - Lipid panel = TC 85, TG 100, LDL 29, HDL 36 - TSH = 3.57 # Acute Kidney Injury - Creatinine = 1.67 -> 1.37 (baseline creatinine unknown) - Urinalysis = pending - Monitor creatinine and urine output - If worsening, obtain renal ultrasound - Renally dose medications # Type II Diabetes Mellitus - Hgb A1c = 5.8 % - Correction scale insulin # Right Popliteal Fossa Guo's Cyst (3.1 cm x 1.8 cm) - Follow-up with PCP Oleksandr Guerra M.D.
[2022-06-16] MEDS ORDERED: CLOPIDOGREL 75 MG TABLET PO SCH (15:00)
[2022-06-16] MEDS: POLYVINYL ALCOHOL 1.4% 15 ML EACH EYE SCH ×2 (17:58→20:21)
[2022-06-16] MEDS: ATORVASTATIN 40 MG TAB PO SCH (20:21)
[2022-06-17] MEDS: Ringers Lactate 1,000 ML IV SCH ×3 (00:49→16:56)
[2022-06-17 03:36] LABS: Absolute Lymphocytes (CBC) 1.2 K/uL (0.7-4.9); Hematocrit 32.6 % (39.6-49.0); Lymphocytes % 16.3 % (15.3-44.8); MCV 93.4 fL (80-100); MPV 8.1 fL (7.6-11.3); RBC Red Blood Cell Count 3.49 M/uL (4.33-5.43)
[2022-06-17 03:51] LABS: Potassium 4.1 mmol/L (3.5-5.1)
[2022-06-17] MEDS: INSULIN -REGULAR HUMAN 50 UNIT/0.5 ML ML SQ SCH ×4 (07:30→19:48)
--- NOTE | 2022-06-17 08:35 | RAD REPORT ---
EXAM DESCRIPTION: CT - Ct Stroke Brain Wo Cont - 06/17/2022 8:27 am CLINICAL HISTORY: new onset of S/S COMPARISON: Head Brain Wo Cont dated 06/15/2022; Head angio dated 06/15/2022 TECHNIQUE: All CT scans are performed using dose optimization technique as appropriate and may inclu de automated exposure control or mA/KV adjustment according to patient size. FINDINGS: No intracranial hemorrhage, hydrocephalus or extra-axial fluid collection.No areas of brai n edema or evidence of midline shift. The paranasal sinuses and mastoids are clear. The calvarium is intact. IMPRESSION: No acute intracranial abnormality.
[2022-06-17] MEDS ORDERED: HYDRALAZINE HCL 20 MG/ML VIAL ONE ×2 (08:39→09:06)
[2022-06-17] MEDS ORDERED: TENECTEPLASE 50 MG/10 ML VIAL IV STA (08:57)
[2022-06-17] MEDS: POLYVINYL ALCOHOL 1.4% 15 ML EACH EYE SCH ×4 (09:00→19:47)
[2022-06-17] MEDS: FOLIC ACID 1 MG TABLET PO SCH (09:00)
[2022-06-17] MEDS: levETIRAcetam 500 MG TAB PO SCH (09:00)
[2022-06-17] MEDS ORDERED: LABETALOL 20 MG/4ML SYRINGE IV ONE ×2 (09:20→10:00)
[2022-06-17] MEDS ORDERED: NICARDIPINE HCL 25 MG in NA CHLORIDE 0.9% 240 ML IV PRN (09:31)
[2022-06-17] MEDS ORDERED: Nicardipine/NS 0 MG/0 ML KIT IV ONE (09:38)
--- NOTE | 2022-06-17 10:06 | RAD REPORT ---
EXAM DESCRIPTION: RAD - Chest Single View - 06/17/2022 10:01 am CLINICAL HISTORY: hypoxia COMPARISON: Chest Single View dated 06/15/2022; ABDOMEN 1 VIEW KUB dated 03/22/2015 FINDINGS: Lines: None. Lungs: No evidence of edema or pneumonia. Pleural: No significant pleural effusions or pneumothorax. Cardiac: The heart size is within normal limits. Mediastinum: Within normal limits. Bones: No acute fractures. Other: None IMPRESSION: No acute cardiopulmonary disease.
[2022-06-17] MEDS: levETIRAcetam 1,000 MG in NA CHLORIDE 0.9% 100 ML IV SCH ×2 (10:27→19:48)
--- NOTE | 2022-06-17 10:44 | RAD REPORT ---
EXAM DESCRIPTION: US - CP - 06/16/2022 3:44 am CLINICAL HISTORY: ivan. CVA COMPARISON: Neck Angio dated 06/15/2022 TECHNIQUE: Real-time sonographic evaluation of bilateral carotid and vertebral systems was performed . Molina scale and Doppler interrogation were performed with waveform tracing bilaterally. FINDINGS: Normal high resistance waveforms are noted in both external carotid arteries. The common c arotid arteries and internal carotid arteries show normal low resistance waveforms. Calcified and noncalcified plaquing changes are seen in each carotid bulb. Visually there is no signi ficant luminal narrowing. No dissection seen. Peak systolic and end diastolic velocity values and the ICA/CCA ratios are in the non-hemodynamically significant range. Antegrade flow seen in both vertebral arteries. Velocity values and ratios were recorded and are retained in the patient's imaging records. Final report was delayed due to technical issues. Images were resubmitted for interpretation has an o riginal dictation cannot be retrieved. IMPRESSION: Mild carotid bulb plaquing changes. No evidence of a hemodynamically significant stenosis.
[2022-06-17] MEDS ORDERED: NA CHLORIDE 0.9% IV SCH ×3 (11:00→14:00)
[2022-06-17] MEDS ORDERED: DILTIAZEM HCL IV SCH ×2 (11:00)
--- NOTE | 2022-06-17 13:22 | P.PN ---
Subjective Date of Service: 06/17/22 Chief Complaint: Rule out CVA I saw Mr. Summers on rounds around 07:30 AM this morning. His neurologic examination was unchanged compared to yesterday. He reported some nausea and mild chest discomfort. I ordered a STAT EKG and troponin. At 08:12 AM, a Code Stroke was called. I arrived shortly after, to find him minimally responsive. He was breathing on his own, but was not following any commands. A stat CT head protocol was ordered and revealed, "no acute intracranial abnormality." His NIHSS scale was difficult to obtain given his mental status, but was scored at 15. Another physician (Dr. Jane) made it to the room slightly before me and reported that there were leftsided deficits; however, this was not observed by the family members in the room. I reviewed his case with Dr. Cuellar, and given that we were within the window for tenecteplase, he recommended that we proceed with tenecteplase. An extensive risks and benefits discussion was held with multiple family members including his , daughter and other family members in the room. Ultimately, they decided to proceed with tenecteplase; however, this was slightly delayed as he was having systolic blood pressures in the 200s. I attempted to lower his blood pressure with 2 rounds of hydralazine 10 mg followed by labetalol 10 mg, but his blood pressure persisted. I then started him on a nicardipine drip and his systolic blood pressure lowered to goal. Tenecteplase was given and he is continuing to be monitored in the intensive care unit. He began waking up and is following commands at this time; however, he is demonstrating weakness in all 4 extremities. Of note, it is not possible to exclude an acute cerebrovascular accident at this time. It is possible that his symptoms preceeding altered mentation, may have represented an aura followed by seizure with Brian's palsy and now with a postictal period; Nevertheless, it is not possible to confirm that at this time. Review of Systems 10-point ROS is otherwise unremarkable Cardiovascular: Chest Pain Gastrointestinal: Nausea Neurological: Confusion Physical Examination - Vital Signs Temperature: 98.2 F Blood Pressure: 138/72 Pulse: 93 Respirations: 20 Pulse Ox (%): 98 Assessment And Plan - Plan - Physical Exam (Pre Code-Stroke) General: Alert, In mild distress, Oriented x3 HEENT: Atraumatic, Mucous membr. moist/pink, EOMI, Sclerae nonicteric Neck: JVD not distended Respiratory: Clear to auscultation bilaterally, Normal air movement Cardiovascular: No edema, Regular rate/rhythm, Normal S1 S2, No gallops, No rubs, No murmurs Gastrointestinal: Normal bowel sounds, Soft and benign, Non-distended, No tenderness, No rebound, No guarding Musculoskeletal: No clubbing Integumentary: No rashes Neurological: Normal speech, Normal tone, Cranial nerves 3-12 intact, Normal affect, Abnormal strength (4+/5 strength in all extremities), Abnormal sensation (numbness in bilateral hands up to elbow and bilateral feet up to knees) NIH Stroke Scale - before Code Stroke 1a. Level of consciousness: 0 - Alert; keenly responsive 1b. LOC questions: 0 - Both questions right 1c. LOC commands: 0 - Performs both tasks 2. Best Gaze: 0 - Normal 3. Visual: 0 - No visual loss 4. Facial Palsy: 2 - Partial paralysis (lower face) 5a. Motor left arm: 0 - No drift for 10 seconds 5b. Motor right arm: 0 - No drift for 10 seconds 6a. Motor left le - No drift for 5 seconds 6b. Motor right le - No drift for 5 seconds 7. Limb ataxia: 0 - No ataxia 8. Sensory: 1 - mild to moderate loss: can sense being touched 9. Best Language: 0 - Normal; no aphasia 10. Dysarthria: 0 - Normal 11. Extinction and Inattention: 0 - No abnormality 12. Distal motor function: 0 - No abnormality Total Score: 3 NIH Stroke Scale - after Code Stroke 1a. Level of consciousness: 1 - Drowsy 1b. LOC questions: 0 - unable to assess 1c. LOC commands: 0 - unable to assess 2. Best Gaze: 0 - unable to assess 3. Visual:0 - unable to assess 4. Facial Palsy: 1 - Mild asymmetry 5a. Motor left arm: 3 - Falls immediately (no effort against gravity) 5b. Motor right arm: 3 - Falls immediately (no effort against gravity) 6a. Motor left le - Falls immediately (no effort against gravity) 6b. Motor right le - Falls immediately (no effort against gravity) 7. Limb ataxia: 0 - unable to assess 8. Sensory: 0 - unable to assess 9. Best Language: 0 - unable to assess 10. Dysarthria: 1 - mild-moderate swelling 11. Extinction and Inattention: 0 - unable to assess 12. Distal motor function: 0 - unable to assess Total Score: 15 # Acute-Onset Neurologic Deficits - # Cannot exclude Acute Cerebrovascular Accident (Multiple Risk Factors) vs Seizure with Brian's Paralysis - s/p Tenecteplase (06/17/2022) # Hypertension # Hyperlipidemia - Consulted Neurology and spoke with Dr. Cuellar - recommendations appreciated - Recommended tenecteplase - Hold aspirin, clopidogrel, SQ heparin - Recommended folic acid, atorvastatin, and levetiracetam - NIHSS = 3 -> 15 - Serial neurochecks + NIHSS - CT head = " No acute intracranial abnormality." - CT head angiogram = "No significant flow abnormality is detected." - CT neck angiogram = "No significant flow abnormality of the neck vessels is identified" - MRI brain = "No acute or subacute infarction change. No acute intracranial finding. Patient has mild atrophy and mild cerebral white matter chronic ischemic change." - MR head angiogram = "MRA head examination shows no significant or suspicious finding." - MR neck angiogram = "MRA neck examination shows no significant or suspicious finding." - Code Stroke (06/17) CT head = "No acute intracranial abnormality." - Ordered transthoracic echocardiogram + EEG - PT/OT/RETAIL WIRELESS ASSOCIATE evaluation requested - Ordered risk profile: - Hgb A1c = 5.8 % - Lipid panel = TC 85, TG 100, LDL 29, HDL 36 - TSH = 3.57 # Acute Kidney Injury - Creatinine = 1.67 -> 1.37 -> 1.25 (baseline creatinine unknown) - Urinalysis = pending - Monitor creatinine and urine output - If worsening, obtain renal ultrasound - Renally dose medications # Type II Diabetes Mellitus - Hgb A1c = 5.8 % - Correction scale insulin # Right Popliteal Fossa Guo's Cyst (3.1 cm x 1.8 cm) - Follow-up with PCP Oleksandr Guerra M.D.
[2022-06-17] MEDS ORDERED: NICARDIPINE HCL IV SCH (14:00)
--- NOTE | 2022-06-17 15:20 | EKG ---
Test Date: 2022-06-17 Test Time: 08:02:03 Field Cashier: EVELYN MEASUREMENT RESULTS: Intervals: Rate: 71 AL: 206 QRSD: 106 QT: 424 QTc: 460 [place]: P: 67 AL: 206 QRS: -37 T: 56 INTERPRETIVE STATEMENTS: Sinus rhythm with occasional premature ventricular complexes Left axis deviation Abnormal ECG Compared to ECG 06/15/2022 12:50:41 Ventricular premature complex(es) now present Electronically Signed On 06-17-22 15:20:11 CHIEF LOCK TENDER OPERATOR by Luis Alberto Barroso
[2022-06-17] MEDS ORDERED: MORPHINE 2 MG/ML SYR IV ONE (18:00)
--- NOTE | 2022-06-17 18:29 | RAD REPORT ---
EXAM DESCRIPTION: MRI - Brain Wo Cont - 06/17/2022 5:57 pm CLINICAL HISTORY: Stroke Eval Headache, drowsiness, CVA symptomology COMPARISON: Ct Stroke Brain Wo Cont dated 06/17/2022; Brain W/Wo Cont dated 06/16/2022 TECHNIQUE: Multi-sequence, multiplanar MR imaging of the brain was performed without contrast. FINDINGS: No intracranial hemorrhage, hydrocephalus or extra-axial fluid collections.Mild confluent T2/FLAIR hyperintensity in the periventricular and deep white matter is present compatible with chron ic microvascular ischemic changes. No edema or shift of midline structures. No findings to suspect br ain mass. DWI is negative for acute CVA. Midline structures are normally formed. Mastoid air cells and paranasal sinuses are clear. IMPRESSION: Negative for acute CVA or other acute intracranial abnormality.
[2022-06-17] MEDS: ACETAMINOPHEN 500 MG TAB PO PRN (19:52)
[2022-06-17] MEDS: ATORVASTATIN 40 MG TAB PO SCH (19:52)
[2022-06-17] MEDS ORDERED: NA CHLORIDE 0.9% 0 ML ONE (19:59)
--- NOTE | 2022-06-17 22:21 | CON ---
Reason For Consultation: Possible stroke. History Of Present Illness: Mr. 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 Th e patient was brought to [facility] where his head CT scan and CT angiogram were all negativ e. He had negative imaging studies for deep vein thrombosis in the lower extremities and a Guo cys t was identified in the popliteal fossa on the right. He had renal insufficiency with elevated creat inine of 1.67. As the patient is a , there was an attempt made to transfer him to the [facility], but that was not successful. While in hospital, he did have a brain MRI the following day, which ruled out the presence of an acute ischemic stroke as this study did not show any such finding. MRA of his head showed no significant abnormalities and an MRA of his neck also showed no significant abnormali ties or suspicious findings. Earlier today, the patient's family thought he had even more left-sided weakness on his face and arm. It was very hard to tell as the patient has diffuse weakness that is chronic. It was felt, however, that this is a new finding and was within the window for TNKs and he was given TNKs. It should be noted that at the time of the deficit, the patient had systolic blood p ressures over 200s and blood pressures had to be decreased to less than 180 with intravenous nicardip ine and labetalol. He did receive the TNKs and the family thought his symptoms returned back towards baseline. A subsequent MRI of his brain ruled out any presence of an acute ischemic hemorrhagic str tahmina. He did have aspirin and Plavix on the date of his admission and prior to receiving the TNKs. T hat will be held for 24 hours as he is monitored in ICU and a repeat CT scan of his head will be done tomorrow. Past Medical History: As noted. Past Surgical History: Hernia repair, parathyroid removal, and cataract surgery. Social History: The patient, his , and family lives at home with them. No alcohol, tobacco, or IV drug use. Family History: Diabetes in brothers. Allergies: HYDROCODONE AND APPARENTLY A MUSCLE RELAXANT. Review of Systems: Diffuse weakness, more left-sided weakness as well. Inability to ambulate without an assistive devic e due to loss of lower extremity sensation and multiple falls. Otherwise, no fevers, chills, myalgia s, arthralgias, rash, headache, or weight change. No active psychiatric issues. Physical Examination: Vital Signs: Blood pressure 163/87, pulse 87, respiratory rate 15 to 19, temperature 97.6, and oxyge n saturation 100%. General: Mr. Summers is resting comfortably in ICU bed. HEENT: He appears normocephalic, atraumatic. His sclerae are anicteric. Oropharynx pink and moist. Neck: Supple. Chest: Clear. Heart: Regular. Extremities: No edema or cyanosis. Neurological: He is alert and oriented to situation and place. He follows simple commands without d ifficulty. In terms of cranial nerves, he does have a decrease of the left nasolabial fold in the V2 -V3 region. He does have equal wrinkling of the forehead when looking straight up. He does have a d ecrease in terms of sensory response to temperature and light touch on the left versus the right face . Otherwise, mild decrease in moving his tongue to the left compared to right side that has decrease d strength. No other cranial nerve abnormalities identified. On motor examination, the left upper e xtremity hand intensive care specialist is 3/5, on the right 4/5, and he has 3/5 strength proximally in the left upper ext remity and right upper extremity is around 3+. In the lower extremities, he is unable to lift his fe et off the bed without assistance and he does have a stocking-glove loss to light touch and temp to a mindy the knees and in addition to that, it is also on above the arms and upper extremities. Unable t o fully assess coordination. In terms of reflexes, he does have a 1+ reflex at the knees, 0 at the p atella, 1 at the biceps, and 0 at the triceps. In terms of his ability to get out of bed and ambulat e that is only done with maximum assistance. He was seen by Speech Therapy who recommended n.p.o. ex cept for ice chips as he had left lingual weakness noted, reduced lingual range of motion and evidenc e of oral pooling and coughing with dry swallows. Laboratory Studies: White blood cell count 7.1, hemoglobin 11.2, hematocrit 32.6, and platelets 123. INR 1.08. Chemistry: Sodium 142, potassium 4.1, chloride 109, carbon dioxide 30, BUN 25, creatini ne 1.25, glucose ranged from 99 to 135, calcium 9.2. Troponin 11.1. COVID testing is negative. His chest x-ray showed no acute cardiopulmonary processes. Assessment: Mr. Summers is a 77-year-old patient with hypertension, diabetes, dyslipidemia, reported pr ior cervical injury that is extensive around C2 or C3 through C7 and significant neuropathic findings in the lower and upper extremities. He does have more focal findings of left face and arm, more melissa n right-sided weakness and left decreased sensation in the face and left sided tongue weakness. He d id have TNKs. His brain MRI following TNKs is unremarkable for any acute ischemic hemorrhagic stroke and this is the second unremarkable MRI for anything acute such as stroke. Plan: The patient remained in ICU with neuro checks since he received TNKs per protocol within 3 arleen rs. He also will have tomorrow a CT scan of the head 24 hours after receiving TNKs. Then he will escalona ve aspirin and Plavix along with folic acid and statin. The patient will be evaluated by Chapito mcleod to see if he is a good candidate for inpatient rehabilitation. At this point, I do recommend t hat strongly. CHRISTINA/KIERA Voice ID: [id number] Report ID: [id number]
[2022-06-18] MEDS: ACETAMINOPHEN 500 MG TAB PO PRN (02:20)
[2022-06-18] MEDS: Ringers Lactate 1,000 ML IV SCH (03:32)
[2022-06-18 05:17] LABS: Absolute Lymphocytes (CBC) 1.2 K/uL (0.7-4.9); Hematocrit 34.7 % (39.6-49.0); Lymphocytes % 15.5 % (15.3-44.8); MCV 93.3 fL (80-100); MPV 8.3 fL (7.6-11.3); RBC Red Blood Cell Count 3.71 M/uL (4.33-5.43)
--- NOTE | 2022-06-18 07:07 | ECHO ---
HEIGHT: 6 ft 2 in WEIGHT: 215 lb 0 oz DATE OF STUDY: 06/17/[address]: Abdoulaye Angelo NP 2-DIMENSIONAL: YES M.MODE: YES DOPPLER: YES COLOR FLOW: YES TDS: PORTABLE: YES DEFINITY: BUBBLE STUDY: DIAGNOSIS: CEREBRAL VASCULAR ACCIDENT CARDIAC HISTORY: CATHERIZATION: NO SURGERY: NO PROSTHETIC VALVE: NO PACEMAKER: NO MEASUREMENTS (cm) DIASTOLIC (NORMALS) SYSTOLIC (NORMALS) IVSd 1.0 (0.6-1.2) LA Diam (1.9-4.0) LVEF 60-65% LVIDd (3.5-5.7) LVIDs (2.0-3.5) %FS % LVPWd (0.6-1.2) Ao Diam 3.0 (2.0-3.7) 2 DIMENSIONAL ASSESSMENT: RIGHT ATRIUM: NORMAL LEFT ATRIUM: NORMAL RIGHT VENTRICLE: NORMAL LEFT VENTRICLE: NORMAL TRICUSPID VALVE: MILD TRICUSPID REGURGITATION MITRAL VALVE: NORMAL PULMONIC VALVE: NORMAL AORTIC VALVE: NORMAL PERICARDIAL EFFUSION: NONE AORTIC ROOT: NORMAL LEFT VENTRICULAR WALL MOTION: NORMAL DOPPLER/COLOR FLOW: MILD TRICUSPID REGURGITATION COMMENTS: 1. NORMAL LEFT VENTRICULAR EJECTION FRACTION 60-65% 2. NORMAL WALL MOTION 3. MILD TRICUSPID REGURGITATION TECHNOLOGIST: ANANTH VANEGAS
[2022-06-18] MEDS: INSULIN -REGULAR HUMAN 50 UNIT/0.5 ML ML SQ SCH ×4 (07:30→20:47)
[2022-06-18 07:48] LABS: Albumin 3.8 g/dL (3.4-5.0); Bilirubin Total 0.7 mg/dL (0.2-1.0); Potassium 3.4 mmol/L (3.5-5.1)
[2022-06-18] MEDS: levETIRAcetam 1,000 MG in NA CHLORIDE 0.9% 100 ML IV SCH ×2 (08:01→20:26)
[2022-06-18] MEDS: POLYVINYL ALCOHOL 1.4% 15 ML EACH EYE SCH ×4 (08:02→19:38)
[2022-06-18] MEDS: FOLIC ACID 1 MG TABLET PO SCH (08:28)
--- NOTE | 2022-06-18 10:32 | RAD REPORT ---
EXAM DESCRIPTION: CT - Head Brain Wo Cont - 06/18/2022 10:25 am CLINICAL HISTORY: r/o bleed (s/p TNK administration 06/17 @0943) COMPARISON: Ct Stroke Brain Wo Cont dated 06/17/2022; Head Brain Wo Cont dated 06/15/2022; Brain Wo Cont dated 06/17/2022; Brain W/Wo Cont dated 06/16/2022 TECHNIQUE: All CT scans are performed using dose optimization technique as appropriate and may inclu de automated exposure control or mA/KV adjustment according to patient size. FINDINGS: No intracranial hemorrhage, hydrocephalus or extra-axial fluid collection.No areas of brai n edema or evidence of midline shift. The paranasal sinuses and mastoids are clear. The calvarium is intact. IMPRESSION: No acute intracranial abnormality. No significant change from prior.
--- NOTE | 2022-06-18 19:47 | P.PN ---
Subjective Date of Service: 06/18/22 Chief Complaint: Rule out CVA He did well overnight, and his NIH scale has improved to a 3. He continues to demonstrate left lower facial droop. He worked well with physical therapy, and they have recommended inpatient rehab. Appreciate case management assistance. Review of Systems 10-point ROS is otherwise unremarkable Neurological: Weakness, Other (left-lower facial droop) Physical Examination - Vital Signs Temperature: 98.2 F Blood Pressure: 164/76 Pulse: 85 Respirations: 14 Pulse Ox (%): 100 Assessment And Plan - Plan - Physical Exam General: Alert, In no distress, Oriented x3 HEENT: Atraumatic, Mucous membr. moist/pink, EOMI, Sclerae nonicteric Neck: JVD not distended Respiratory: Clear to auscultation bilaterally, Normal air movement Cardiovascular: No edema, Regular rate/rhythm, Normal S1 S2, No gallops, No rubs, No murmurs Gastrointestinal: Normal bowel sounds, Soft and benign, Non-distended, No tenderness, No rebound, No guarding Musculoskeletal: No clubbing Integumentary: No rashes Neurological: Normal speech, Normal tone, Cranial nerves 3-12 intact, Normal affect, Abnormal strength (4+/5 strength in all extremities), Abnormal sensation (numbness in bilateral hands up to elbow and bilateral feet up to knees) NIH Stroke Scale - before Code Stroke 1a. Level of consciousness: 0 - Alert; keenly responsive 1b. LOC questions: 0 - Both questions right 1c. LOC commands: 0 - Performs both tasks 2. Best Gaze: 0 - Normal 3. Visual: 0 - No visual loss 4. Facial Palsy: 2 - Partial paralysis (lower face) 5a. Motor left arm: 0 - No drift for 10 seconds 5b. Motor right arm: 0 - No drift for 10 seconds 6a. Motor left le - No drift for 5 seconds 6b. Motor right le - No drift for 5 seconds 7. Limb ataxia: 0 - No ataxia 8. Sensory: 1 - mild to moderate loss: can sense being touched 9. Best Language: 0 - Normal; no aphasia 10. Dysarthria: 0 - Normal 11. Extinction and Inattention: 0 - No abnormality 12. Distal motor function: 0 - No abnormality Total Score: 3 # Acute-Onset Neurologic Deficits - Cannot exclude Acute Cerebrovascular Accident (Multiple Risk Factors) vs Seizure with Brian's Paralysis - s/p Tenecteplase (06/17/2022) # Hypertension # Hyperlipidemia - Consulted Neurology and spoke with Dr. Cuellar - recommendations appreciated - Recommended tenecteplase - Hold aspirin, clopidogrel, SQ heparin - Recommended folic acid, atorvastatin, and levetiracetam - NIHSS = 3 -> 15 -> 3 - Serial neurochecks + NIHSS - CT head = " No acute intracranial abnormality." - CT head angiogram = "No significant flow abnormality is detected." - CT neck angiogram = "No significant flow abnormality of the neck vessels is identified" - MRI brain = "No acute or subacute infarction change. No acute intracranial finding. Patient has mild atrophy and mild cerebral white matter chronic ischemic change." - MR head angiogram = "MRA head examination shows no significant or suspicious finding." - MR neck angiogram = "MRA neck examination shows no significant or suspicious finding." - Code Stroke (06/17) CT head = "No acute intracranial abnormality." - MRI brain (06/17) = "Negative for acute CVA or other acute intracranial abnormality." - Transthoracic echocardiogram = "1. normal left ventricular ejection fraction 60-65% 2. normal wall motion 3. mild tricuspid regurgitation" - EEG - PT/OT/M48 M60 ARM[employer] CREWMAN evaluation requested - Per PT = recommended inpatient rehab - Appreciate CM assistance - Ordered risk profile: - Hgb A1c = 5.8 % - Lipid panel = TC 85, TG 100, LDL 29, HDL 36 - TSH = 3.57 - Had extensive discussion with Radiologist (Dr. Devries) reviewing images for potential parotid pathology that would explain his left lower facial droop - Per Dr. Devries, his parotid gland is unremarkable - Discussed possible Willard's palsy with Dr. Cuellar, but appears unlikely given sparing of left upper face # Acute Kidney Injury - Creatinine = 1.67 -> 1.37 -> 1.25 (baseline creatinine unknown) - Urinalysis = pending - Monitor creatinine and urine output - If worsening, obtain renal ultrasound - Renally dose medications # Type II Diabetes Mellitus - Hgb A1c = 5.8 % - Correction scale insulin # Right Popliteal Fossa Guo's Cyst (3.1 cm x 1.8 cm) - Follow-up with PCP Oleksandr Guerra M.D.
[2022-06-18] MEDS: ATORVASTATIN 40 MG TAB PO SCH (20:26)
[2022-06-19] MEDS ORDERED: CETIRIZINE HCL 5 MG TABLET PO ONE (06:08)
[2022-06-19] MEDS: INSULIN -REGULAR HUMAN 50 UNIT/0.5 ML ML SQ SCH ×4 (07:30→21:00)
--- NOTE | 2022-06-19 08:03 | RAD REPORT ---
EXAM DESCRIPTION: - CT-STROKE BRAIN W/O CONTRAST - 06/19/2022 7:52 am CLINICAL HISTORY: change in mental status COMPARISON: Head Brain Wo Cont dated 06/18/2022; Ct Stroke Brain Wo Cont dated 06/17/2022; Head Brain Wo Cont dated 06/15/2022; Brain Wo Cont dated 06/17/2022 TECHNIQUE: All CT scans are performed using dose optimization technique as appropriate and may inclu de automated exposure control or mA/KV adjustment according to patient size. FINDINGS: No intracranial hemorrhage, hydrocephalus or extra-axial fluid collection.No areas of brai n edema or evidence of midline shift. Mild chronic small vessel ischemic changes The paranasal sinuses and mastoids are clear. The calvarium is intact. IMPRESSION: No acute intracranial abnormality.
[2022-06-19 08:07] LABS: Arterial Blood Carboxyhemoglob 1.4 % (0-1.5); Blood Gas Oxyhemoglobin 94.8 % (94-97); Blood O2 Saturation 97.4 % (92-98.5)
--- NOTE | 2022-06-19 08:32 | RAD REPORT ---
EXAM DESCRIPTION: RAD - Chest Single View - 06/19/2022 8:24 am CLINICAL HISTORY: pr states chest congestion COMPARISON: <Comparisons> FINDINGS: Lines: None. Lungs: No evidence of edema or pneumonia. Pleural: No significant pleural effusions or pneumothorax. Cardiac: The heart size is within normal limits. Mediastinum: Within normal limits. Bones: No acute fractures. Other: None IMPRESSION: No acute cardiopulmonary disease.
[2022-06-19] MEDS ORDERED: DIVALPROEX DR 500MG TAB PO ONE (09:00)
[2022-06-19 09:02] LABS: Absolute Lymphocytes (CBC) 1.1 K/uL (0.7-4.9); Lymphocytes % 10.2 % (15.3-44.8); MCV 92.6 fL (80-100); MPV 8.3 fL (7.6-11.3); RBC Red Blood Cell Count 4.11 M/uL (4.33-5.43)
[2022-06-19 09:07] LABS: Bilirubin Total 0.7 mg/dL (0.2-1.0); Potassium 3.4 mmol/L (3.5-5.1); Protein, Total 7.5 g/dL (6.4-8.2)
--- NOTE | 2022-06-19 09:49 | RAD REPORT ---
EXAM DESCRIPTION: CT - Chest For Pe Angio - 06/19/2022 9:36 am CLINICAL HISTORY: elevated d-dimer COMPARISON: None TECHNIQUE: Dynamically enhanced axial 3 mm thick images of the chest were obtained during administra tion of <100> mL Isovue 370 IV contrast. Coronal and oblique reconstruction images were generated and reviewed. Exam utilizes a protocol for optimal evaluation of pulmonary arterial tree. Maximum intensity projections 3D imaging was utilized All CT scans are performed using dose optimization technique as appropriate and may include automated exposure control or mA/KV adjustment according to patient size. FINDINGS: Chest Wall: No suspicious thyroid nodules or pathologic lymphadenopathy. Lungs: No acute abnormality. Pleura: No significant effusions or pneumothorax. Mediastinum/nancy: No pathologic lymphadenopathy. Pulmonary arteries/Aorta: No filling defect identified. No aortic aneurysm. Heart: No significant pericardial effusion. Normal heart size. Scattered coronary calcifications . Upper abdomen: No acute abnormality.Cholecystectomy. Benign-appearing low-density lesion in segment 4 of the liver. Bones: No acute abnormality. Bridging osteophytes in the spine. IMPRESSION: Negative for pulmonary embolism. No acute findings within the chest.
[2022-06-19] MEDS: ASPIRIN 81 MG CHEWABLE TABLET PO SCH (10:07)
[2022-06-19] MEDS: CLOPIDOGREL 75 MG TABLET PO SCH (10:07)
[2022-06-19] MEDS: levETIRAcetam 1,000 MG in NA CHLORIDE 0.9% 100 ML IV SCH (10:08)
[2022-06-19] MEDS: FOLIC ACID 1 MG TABLET PO SCH (10:08)
[2022-06-19] MEDS: POLYVINYL ALCOHOL 1.4% 15 ML EACH EYE SCH ×4 (10:09→21:22)
--- NOTE | 2022-06-19 16:02 | P.PN ---
Subjective Date of Service: 06/19/22 Chief Complaint: Rule out CVA Stroke alert called at 07:37 AM this morning for lethargy. He did not open his eyes or follow commands; however, he continued to say "vaccine" and "I'm floating." STAT CT head revealed, "no acute intracranial abnormality." STAT ABG revealed pH 7.50, PCO2 32.1, and PO2 95.4. CRP <2.90, Troponin 11.6, and a POC glucose of 134. D-dimer elevated to 937. STAT CT chest angiogram, "negative for pulmonary embolism. No acute findings within the chest." NIHSS scale was initially 22, but about 20-30 minutes later, his NIHSS resolved to 2. He was then asking to eat pancakes. I spoke with Dr. Cuellar, and at this time, our leading suspicion is seizures. He recommended that we consider a transfer to a facility with continuous EEG capabilities. The family has requested a transfer to the [facility]; however, they do not accept patients over the weekends. Review of Systems 10-point ROS is otherwise unremarkable General: Weakness Neurological: Weakness, Numbness, Other (lower left facial droop) Physical Examination - Vital Signs Temperature: 97.4 F Blood Pressure: 139/65 Pulse: 85 Respirations: 18 Pulse Ox (%): 98 Assessment And Plan - Plan - Physical Exam - Before Code Stroke General: Alert, In no distress, Oriented x3 HEENT: Atraumatic, Mucous membr. moist/pink, EOMI, Sclerae nonicteric Neck: JVD not distended Respiratory: Clear to auscultation bilaterally, Normal air movement Cardiovascular: No edema, Regular rate/rhythm, Normal S1 S2, No gallops, No rubs, No murmurs Gastrointestinal: Normal bowel sounds, Soft and benign, Non-distended, No tenderness, No rebound, No guarding Musculoskeletal: No clubbing Integumentary: No rashes Neurological: Normal speech, Normal tone, Cranial nerves 3-12 intact, Normal affect, Abnormal strength (4+/5 strength in all extremities), Abnormal sensation (numbness in bilateral hands up to elbow and bilateral feet up to knees) NIH Stroke Scale - at Code Stroke 1a. Level of consciousness: 1- Drowsy 1b. LOC questions: 1 - One answer correct 1c. LOC commands: 2 - Neither 2. Best Gaze: 0 -Unable to assess 3. Visual: 0 - Unable to assess 4. Facial Palsy: 1 - Mild asymmetry (lower face) 5a. Motor left arm: 3 - Falls immediately (no effort against gravity) 5b. Motor right arm: 3 - Falls immediately (no effort against gravity) 6a. Motor left le - Falls immediately (no effort against gravity) 6b. Motor right le - Falls immediately (no effort against gravity) 7. Limb ataxia: 0 - Unable to assess 8. Sensory: 1 - mild to moderate loss: can sense being touched 9. Best Language: 2 - Severe aphasia 10. Dysarthria: 2 - Severe, near unintelligible words 11. Extinction and Inattention: 0 - Unable to assess 12. Distal motor function: 0 - Unable to assess Total Score: 22 NIH Stroke Scale - after Code Stroke 1a. Level of consciousness: 0 - Alert; keenly responsive 1b. LOC questions: 0 - Both questions right 1c. LOC commands: 0 - Performs both tasks 2. Best Gaze: 0 - Normal 3. Visual: 0 - No visual loss 4. Facial Palsy: 1 - Mild asymmetry (lower face) 5a. Motor left arm: 0 - No drift for 10 seconds 5b. Motor right arm: 0 - No drift for 10 seconds 6a. Motor left le - No drift for 5 seconds 6b. Motor right le - No drift for 5 seconds 7. Limb ataxia: 0 - No ataxia 8. Sensory: 1 - mild to moderate loss: can sense being touched 9. Best Language: 0 - Normal; no aphasia 10. Dysarthria: 0 - Normal 11. Extinction and Inattention: 0 - No abnormality 12. Distal motor function: 0 - No abnormality Total Score: 2 # Acute-Onset Neurologic Deficits - Cannot exclude Acute Cerebrovascular Accident (Multiple Risk Factors) vs Seizure with Brian's Paralysis - s/p Tenecteplase (06/17/2022) # Hypertension # Hyperlipidemia - Consulted Neurology and spoke with Dr. Cuellar - recommendations appreciated - S/P tenecteplase on 06/17/2022 @ 09:47 - Hold SQ heparin - Recommended folic acid, atorvastatin, aspirin, clopidogrel - Recommended continuing levetiracetam and starting Depakote - NIHSS = 3 -> 15 -> 3 -> 22 -> 2 - Serial neurochecks + NIHSS - CT head = " No acute intracranial abnormality." - CT head angiogram = "No significant flow abnormality is detected." - CT neck angiogram = "No significant flow abnormality of the neck vessels is identified" - MRI brain = "No acute or subacute infarction change. No acute intracranial finding. Patient has mild atrophy and mild cerebral white matter chronic ischemic change." - MR head angiogram = "MRA head examination shows no significant or suspicious finding." - MR neck angiogram = "MRA neck examination shows no significant or suspicious finding." - Code Stroke (06/17) CT head = "No acute intracranial abnormality." - MRI brain (06/17) = "Negative for acute CVA or other acute intracranial abnormality." - Code Stroke (06/19) CT head = "No acute intracranial abnormality. No significant change from prior" - Transthoracic echocardiogram = "1. normal left ventricular ejection fraction 60-65% 2. normal wall motion 3. mild tricuspid regurgitation" - EEG pending - PT/OT/PLASTICS TECHNICIAN evaluation requested - Per PT = recommended inpatient rehab - [facility] assistance - Ordered risk profile: - Hgb A1c = 5.8 % - Lipid panel = TC 85, TG 100, LDL 29, HDL 36 - TSH = 3.57 - Had extensive discussion with Radiologist (Dr. Devries) reviewing images for potential parotid pathology that would explain his left lower facial droop - Per Dr. Devries, his parotid gland is unremarkable - Discussed possible Willard's palsy with Dr. Cuellar, but appears unlikely given sparing of left upper face # Acute Kidney Injury - Creatinine = 1.67 -> 1.37 -> 1.25 (baseline creatinine unknown) - Urinalysis = pending - Monitor creatinine and urine output - If worsening, obtain renal ultrasound - Renally dose medications # Type II Diabetes Mellitus - Hgb A1c = 5.8 % - Correction scale insulin # Right Popliteal Fossa Guo's Cyst (3.1 cm x 1.8 cm) - Follow-up with PCP Oleksandr Guerra M.D.
[2022-06-19] MEDS: ATORVASTATIN 40 MG TAB PO SCH (21:21)
[2022-06-19] MEDS: DIVALPROEX DR 500MG TAB PO SCH (21:21)
[2022-06-19] MEDS: levETIRAcetam 500 MG TAB PO SCH (21:21)
--- NOTE | 2022-06-19 21:29 | RAD REPORT ---
EXAM DESCRIPTION: US - Extrem Venous W Compress Andrea - 06/19/2022 9:24 pm CLINICAL HISTORY: elevated d-dimer COMPARISON: Extremity Venous Uni Ltd dated 06/15/2022 TECHNIQUE: Real-time sonographic evaluation of the lower extremity deep venous systems was performed using color Doppler, grayscale, and compression. FINDINGS: Bilateral lower extremities. Normal compressibility, flow augmentation, phasic flow and spontaneous flow is identified in both the left and right lower extremity deep venous systems. No intraluminal filling defects seen. IMPRESSION: No DVT in either lower extremity.
[2022-06-20] MEDS: INSULIN -REGULAR HUMAN 50 UNIT/0.5 ML ML SQ SCH ×4 (07:30→21:00)
[2022-06-20] MEDS: CLOPIDOGREL 75 MG TABLET PO SCH (08:35)
[2022-06-20] MEDS: levETIRAcetam 500 MG TAB PO SCH ×2 (08:35→22:20)
[2022-06-20] MEDS: DIVALPROEX DR 500MG TAB PO SCH ×3 (08:35→21:04)
[2022-06-20] MEDS: ASPIRIN 81 MG CHEWABLE TABLET PO SCH (08:35)
[2022-06-20] MEDS: FOLIC ACID 1 MG TABLET PO SCH (08:35)
[2022-06-20] MEDS: POLYVINYL ALCOHOL 1.4% 15 ML EACH EYE SCH ×4 (08:40→21:07)
[2022-06-20] MEDS: LEVOTHYROXINE SOD 0.075 MG TAB PO SCH (08:40)
[2022-06-20] MEDS ORDERED: PROPRANOLOL HCL 40 MG TAB PO ONE (16:15)
--- NOTE | 2022-06-20 16:35 | P.PN ---
Subjective Date of Service: 06/20/22 Chief Complaint: Rule out CVA No acute events overnight. He appears well this morning. He has had no recurrent episodes. He and his family are requesting transfer to the [facility] for continuity of care. placement secretary called [facility] on 06/18/2022, and was advised to call back on 06/21/2022 since they do not accept transfers over the weekend. He and his family have been updated and verbalized understanding. Review of Systems 10-point ROS is otherwise unremarkable General: Weakness, Malaise Neurological: Weakness, Numbness Physical Examination - Vital Signs Temperature: 98.0 F Blood Pressure: 124/70 Pulse: 87 Respirations: 14 Pulse Ox (%): 97 Assessment And Plan - Plan - Physical Exam - General: Alert, In no distress, Oriented x3 HEENT: Atraumatic, Mucous membr. moist/pink, EOMI, Sclerae nonicteric Neck: JVD not distended Respiratory: Clear to auscultation bilaterally, Normal air movement Cardiovascular: No edema, Regular rate/rhythm, Normal S1 S2, No gallops, No rubs, No murmurs Gastrointestinal: Normal bowel sounds, Soft and benign, Non-distended, No tenderness, No rebound, No guarding Musculoskeletal: No clubbing Integumentary: No rashes Neurological: Normal speech, Normal tone, Cranial nerves 3-12 intact, Normal affect, Abnormal strength (4+/5 strength in all extremities), Abnormal sensation (numbness in bilateral hands up to elbow and bilateral feet up to knees), mild left lower facial droop NIH Stroke Scale - 1a. Level of consciousness: 0 - Alert; keenly responsive 1b. LOC questions: 0 - Both questions right 1c. LOC commands: 0 - Performs both tasks 2. Best Gaze: 0 - Normal 3. Visual: 0 - No visual loss 4. Facial Palsy: 1 - Mild asymmetry (lower face) 5a. Motor left arm: 0 - No drift for 10 seconds 5b. Motor right arm: 0 - No drift for 10 seconds 6a. Motor left le - No drift for 5 seconds 6b. Motor right le - No drift for 5 seconds 7. Limb ataxia: 0 - No ataxia 8. Sensory: 1 - mild to moderate loss: can sense being touched 9. Best Language: 0 - Normal; no aphasia 10. Dysarthria: 0 - Normal 11. Extinction and Inattention: 0 - No abnormality 12. Distal motor function: 0 - No abnormality Total Score: 2 # Acute-Onset Neurologic Deficits - Cannot exclude Acute Cerebrovascular Accident (Multiple Risk Factors) vs Seizure with Brian's Paralysis - s/p Tenecteplase (06/17/2022) # Hypertension # Hyperlipidemia - Consulted Neurology and spoke with Dr. Cuellar - recommendations appreciated - S/P tenecteplase on 06/17/2022 @ 09:47 - Hold SQ heparin - SCDs for VTE prophylaxis - Recommended folic acid, atorvastatin, aspirin, clopidogrel - Recommended continuing levetiracetam and starting Depakote - NIHSS = 3 -> 15 -> 3 -> 22 -> 2 - Serial neurochecks + NIHSS - CT head = " No acute intracranial abnormality." - CT head angiogram = "No significant flow abnormality is detected." - CT neck angiogram = "No significant flow abnormality of the neck vessels is identified" - MRI brain = "No acute or subacute infarction change. No acute intracranial finding. Patient has mild atrophy and mild cerebral white matter chronic ischemic change." - MR head angiogram = "MRA head examination shows no significant or suspicious finding." - MR neck angiogram = "MRA neck examination shows no significant or suspicious finding." - Code Stroke (06/17) CT head = "No acute intracranial abnormality." - MRI brain (06/17) = "Negative for acute CVA or other acute intracranial abnormality." - Code Stroke (06/19) CT head = "No acute intracranial abnormality. No significant change from prior" - Transthoracic echocardiogram = "1. normal left ventricular ejection fraction 60-65% 2. normal wall motion 3. mild tricuspid regurgitation" - Plan for repeat MRI as part of Code Stroke on 06/21/2022 - EEG pending - PT/OT/SILVICULTURIST evaluation requested - Per PT = recommended inpatient rehab - Appreciate CM assistance - Ordered risk profile: - Hgb A1c = 5.8 % - Lipid panel = TC 85, TG 100, LDL 29, HDL 36 - TSH = 3.57 - Had extensive discussion with Radiologist (Dr. Devries) reviewing images for potential parotid pathology that would explain his left lower facial droop - Per Dr. Devries, his parotid gland is unremarkable - Discussed possible Willard's palsy with Dr. Cuellar, but appears unlikely given sparing of left upper face # Acute Kidney Injury - Creatinine = 1.67 -> 1.37 -> 1.25 -> 1.15 -> 1.22 (baseline creatinine unknown) - Urinalysis = pending - Monitor creatinine and urine output - If worsening, obtain renal ultrasound - Renally dose medications # Type II Diabetes Mellitus - Hgb A1c = 5.8 % - Correction scale insulin # Right Popliteal Fossa Guo's Cyst (3.1 cm x 1.8 cm) - Follow-up with PCP Plan to initiate transfer to [facility] on 06/21/2022 for continuity of care and for continuous EEG monitoring. Oleksandr Guerra M.D.
[2022-06-20] MEDS: ATORVASTATIN 40 MG TAB PO SCH (21:07)
[2022-06-20] MEDS: GABAPENTIN 300 MG CAP PO SCH (21:07)
[2022-06-20] MEDS ORDERED: ALPRAZOLAM 0.25 MG TABLET PO ONE (22:05)
[2022-06-21] MEDS: LEVOTHYROXINE SOD 0.075 MG TAB PO SCH (05:46)
[2022-06-21 06:06] LABS: Absolute Lymphocytes (CBC) 1.3 K/uL (0.7-4.9); Hematocrit 34.2 % (39.6-49.0); Lymphocytes % 13.7 % (15.3-44.8); MCV 94.1 fL (80-100); RBC Red Blood Cell Count 3.64 M/uL (4.33-5.43)
[2022-06-21 06:21] LABS: Magnesium 1.6 mg/dL (1.6-2.4); Potassium 3.4 mmol/L (3.5-5.1)
[2022-06-21] MEDS: INSULIN -REGULAR HUMAN 50 UNIT/0.5 ML ML SQ SCH ×4 (07:30→20:59)
[2022-06-21] MEDS: DIVALPROEX DR 500MG TAB PO SCH ×2 (08:35→13:24)
[2022-06-21] MEDS: levETIRAcetam 500 MG TAB PO SCH ×2 (08:35→20:53)
[2022-06-21] MEDS: GABAPENTIN 300 MG CAP PO SCH ×3 (08:35→20:53)
[2022-06-21] MEDS: ASPIRIN 81 MG CHEWABLE TABLET PO SCH (08:35)
[2022-06-21] MEDS: FOLIC ACID 1 MG TABLET PO SCH (08:36)
[2022-06-21] MEDS: POLYVINYL ALCOHOL 1.4% 15 ML EACH EYE SCH ×4 (08:36→20:53)
[2022-06-21] MEDS: CLOPIDOGREL 75 MG TABLET PO SCH (08:36)
[2022-06-21] MEDS: ACETAMINOPHEN 500 MG TAB PO PRN ×3 (08:48→21:42)
[2022-06-21] MEDS ORDERED: PROPRANOLOL HCL 40 MG TAB PO ONE (12:43)
[2022-06-21] MEDS: PROPRANOLOL HCL 40 MG TAB PO SCH (20:52)
[2022-06-21] MEDS: ATORVASTATIN 40 MG TAB PO SCH (20:53)
[2022-06-22 04:53] LABS: Absolute Lymphocytes (CBC) 1.5 K/uL (0.7-4.9); Hematocrit 33.2 % (39.6-49.0); Lymphocytes % 19.6 % (15.3-44.8); MCV 93.3 fL (80-100); MPV 8.2 fL (7.6-11.3); RBC Red Blood Cell Count 3.55 M/uL (4.33-5.43)
[2022-06-22 05:13] LABS: Albumin 3.1 g/dL (3.4-5.0); Bilirubin Total 0.7 mg/dL (0.2-1.0); Magnesium 2.1 mg/dL (1.6-2.4); Phosphorus 3.7 mg/dL (2.5-4.9); Potassium 3.3 mmol/L (3.5-5.1); Protein, Total 6.8 g/dL (6.4-8.2)
[2022-06-22] MEDS: LEVOTHYROXINE SOD 0.075 MG TAB PO SCH (05:43)
[2022-06-22] MEDS: INSULIN -REGULAR HUMAN 50 UNIT/0.5 ML ML SQ SCH ×4 (07:30→20:31)
[2022-06-22] MEDS: FOLIC ACID 1 MG TABLET PO SCH (09:14)
[2022-06-22] MEDS: CLOPIDOGREL 75 MG TABLET PO SCH (09:14)
[2022-06-22] MEDS: PROPRANOLOL HCL 40 MG TAB PO SCH ×2 (09:14→20:30)
[2022-06-22] MEDS: GABAPENTIN 300 MG CAP PO SCH ×3 (09:14→20:30)
[2022-06-22] MEDS: levETIRAcetam 500 MG TAB PO SCH ×2 (09:14→20:31)
[2022-06-22] MEDS: ASPIRIN 81 MG CHEWABLE TABLET PO SCH (09:14)
[2022-06-22] MEDS: POLYVINYL ALCOHOL 1.4% 15 ML EACH EYE SCH ×4 (09:15→20:31)
[2022-06-22] MEDS: ACETAMINOPHEN 500 MG TAB PO PRN (09:24)
[2022-06-22] MEDS: ATORVASTATIN 40 MG TAB PO SCH (20:30)
--- NOTE | 2022-06-22 21:45 | P.PN ---
Date of Service: 06/21/22 Subjective Patient is clinically doing well. patient is working with physical therapy. Doing better according to the family. Called [facility] and arrange for transfer. Hoping we can get a bed available later today. Physical Examination - Vital Signs reviewed - Physical Exam - General: Alert, In no distress, Oriented x3 Respiratory: Clear to auscultation bilaterally, Normal air movement Cardiovascular: No edema, Regular rate/rhythm, Normal S1 S2, No gallops, No rubs, No murmurs Gastrointestinal: Normal bowel sounds, Soft and benign, Non-distended, No tenderness, No rebound, No guarding Neurological: No focal deficits Assessment And Plan - Assessment # Acute-Onset Neurologic Deficits # Hypertension # Hyperlipidemia # Acute Kidney Injury # Type II Diabetes Mellitus # Right Popliteal Fossa Guo's Cyst (3.1 cm x 1.8 cm) - Plan -cultures are negative -monitor renal function closely -MRI of the brain x 2 have been negative -OOB and ambulate -physical/occupational therapy appreciated -strict blood pressure and blood sugar control -attempt transfer to [facility]
[2022-06-23] MEDS: ACETAMINOPHEN 500 MG TAB PO PRN (05:48)
[2022-06-23] MEDS: LEVOTHYROXINE SOD 0.075 MG TAB PO SCH (05:49)
--- NOTE | 2022-06-23 06:07 | P.PN ---
Date of Service: 06/22/22 Subjective CONTINUES TO SHOW A LOT OF IMPROVEMENT. CLINICAL SYMPTOMS MUCH BETTER. Physical Examination - Vital Signs reviewed - Physical Exam - General: Alert, In no distress, Oriented x3 Respiratory: Clear to auscultation bilaterally, Normal air movement Cardiovascular: No edema, Regular rate/rhythm, Normal S1 S2, No gallops, No rubs, No murmurs Gastrointestinal: Normal bowel sounds, Soft and benign, Non-distended, No tenderness, No rebound, No guarding Neurological: No focal deficits Assessment And Plan - Assessment # Acute-Onset Neurologic Deficits # Hypertension # Hyperlipidemia # Acute Kidney Injury # Type II Diabetes Mellitus # Right Popliteal Fossa Guo's Cyst (3.1 cm x 1.8 cm) - Plan -cultures are negative -monitor renal function closely -MRI of the brain x 2 have been negative -OOB and ambulate -physical/occupational therapy appreciated -strict blood pressure and blood sugar control -attempt transfer to [facility]
[2022-06-23] MEDS ORDERED: HYDROCODONE/APAP 5/325 MG TAB PO ONE (06:46)
[2022-06-23] MEDS: INSULIN -REGULAR HUMAN 50 UNIT/0.5 ML ML SQ SCH ×4 (07:30→20:26)
[2022-06-23] MEDS: levETIRAcetam 500 MG TAB PO SCH ×2 (08:30→20:12)
[2022-06-23] MEDS: ASPIRIN 81 MG CHEWABLE TABLET PO SCH (08:30)
[2022-06-23] MEDS: CLOPIDOGREL 75 MG TABLET PO SCH (08:31)
[2022-06-23] MEDS: GABAPENTIN 300 MG CAP PO SCH ×3 (08:31→20:13)
[2022-06-23] MEDS: FOLIC ACID 1 MG TABLET PO SCH (08:31)
[2022-06-23] MEDS: PROPRANOLOL HCL 40 MG TAB PO SCH ×2 (08:31→20:14)
[2022-06-23] MEDS: POLYVINYL ALCOHOL 1.4% 15 ML EACH EYE SCH ×4 (08:32→20:26)
[2022-06-23 13:07] LABS: Magnesium 1.8 mg/dL (1.6-2.4); Phosphorus 2.6 mg/dL (2.5-4.9); Potassium 3.6 mmol/L (3.5-5.1)
[2022-06-23 13:09] LABS: Hematocrit 34.7 % (39.6-49.0); Lymphocytes % 13.9 % (15.3-44.8); MCV 92.8 fL (80-100); MPV 8.5 fL (7.6-11.3); RBC Red Blood Cell Count 3.73 M/uL (4.33-5.43)
[2022-06-23] MEDS ORDERED: CALCIUM CARBONATE CHEW 500MG TAB PO PRN (16:10)
[2022-06-23] MEDS: ATORVASTATIN 40 MG TAB PO SCH (20:13)
[2022-06-24] MEDS: ACETAMINOPHEN 500 MG TAB PO PRN ×3 (03:47→22:55)
[2022-06-24] MEDS: LEVOTHYROXINE SOD 0.075 MG TAB PO SCH (06:50)
[2022-06-24] MEDS: INSULIN -REGULAR HUMAN 50 UNIT/0.5 ML ML SQ SCH ×4 (07:30→20:11)
[2022-06-24] MEDS: POLYVINYL ALCOHOL 1.4% 15 ML EACH EYE SCH ×4 (09:00→22:43)
[2022-06-24] MEDS: ASPIRIN 81 MG CHEWABLE TABLET PO SCH (09:19)
[2022-06-24] MEDS: CLOPIDOGREL 75 MG TABLET PO SCH (09:20)
[2022-06-24] MEDS: FOLIC ACID 1 MG TABLET PO SCH (09:20)
[2022-06-24] MEDS: PROPRANOLOL HCL 40 MG TAB PO SCH ×2 (09:20→22:44)
[2022-06-24] MEDS: levETIRAcetam 500 MG TAB PO SCH ×2 (09:20→22:44)
[2022-06-24] MEDS: GABAPENTIN 300 MG CAP PO SCH ×3 (09:20→22:43)
--- NOTE | 2022-06-24 13:48 | EEG ---
CHART: [id number] TEST ID#: [id number] DATE OF STUDY: 06/16/2022 THE EEG WAS RECORDED PORTABLE IN THE PATIENT'S ROOM ON A 17 CHANNEL MACHINE. ELECTRODES WERE APPLIED IN THE USUAL MANNER USING THE INTERNATIONAL 10-20 SYSTEM. THE WAKING BACKGROUND RHYTHM IN THIS RECORD CONSISTS OF FAIRLY WELL DEVELOPED AND FAIRLY WELL ORGANIZED WAVES OF 8 HZ., MAXIMAL IN THE POSTERIOR HEAD REGIONS WHICH ATTENUATE NORMALLY WITH EYE OPENING. THERE IS A FOCUS OF SHARP WAVE ACTIVITY IN THE LEFT TEMPORAL AND CENTRAL REGIONS. LOW-VOLTAGE 15-18 HZ ACTIVITY IS EXPRESSED IN THE FRONTAL REGIONS. THERE ARE NO FOCAL OR LATERALIZING FEATURES. NO EPILEPTIFORM ACTIVITY APPEARS. SLEEP DID NOT OCCUR. HYPERVENTILATION WAS NOT PERFORMED. PHOTIC STIMULATION PRODUCED NO DRIVING BILATERALLY. IMPRESSION: THIS IS AN ABNORMAL EEG DUE TO A FOCUS OF SHARP WAVE ACTIVITY IN THE LEFT TEMPORAL AND CENTRAL REGIONS. FURTHER, THE POSTERIOR DOMINANT RHYTHM IS MILDLY SLOW. 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
[2022-06-24] MEDS: ATORVASTATIN 40 MG TAB PO SCH (22:43)
[2022-06-25] MEDS: LEVOTHYROXINE SOD 0.075 MG TAB PO SCH (06:06)
[2022-06-25] MEDS: INSULIN -REGULAR HUMAN 50 UNIT/0.5 ML ML SQ SCH ×4 (07:30→20:58)
[2022-06-25] MEDS: PROPRANOLOL HCL 40 MG TAB PO SCH ×2 (10:00→20:57)
[2022-06-25] MEDS: CLOPIDOGREL 75 MG TABLET PO SCH (10:01)
[2022-06-25] MEDS: GABAPENTIN 300 MG CAP PO SCH ×3 (10:01→20:57)
[2022-06-25] MEDS: levETIRAcetam 500 MG TAB PO SCH ×2 (10:01→20:57)
[2022-06-25] MEDS: FOLIC ACID 1 MG TABLET PO SCH (10:01)
[2022-06-25] MEDS: ASPIRIN 81 MG CHEWABLE TABLET PO SCH (10:01)
[2022-06-25] MEDS: POLYVINYL ALCOHOL 1.4% 15 ML EACH EYE SCH ×4 (10:02→20:57)
[2022-06-25] MEDS: ACETAMINOPHEN 500 MG TAB PO PRN (11:35)
[2022-06-25] MEDS ORDERED: ONDANSETRON 4 MG (ODT) TAB PO PRN (17:49)
[2022-06-25] MEDS: ATORVASTATIN 40 MG TAB PO SCH (20:57)
[2022-06-26] MEDS: LEVOTHYROXINE SOD 0.075 MG TAB PO SCH (05:56)
[2022-06-26 06:25] LABS: Absolute Lymphocytes (CBC) 1.3 K/uL (0.7-4.9); Lymphocytes % 21.7 % (15.3-44.8); MPV 7.5 fL (7.6-11.3)
[2022-06-26 07:08] LABS: Albumin 3.1 g/dL (3.4-5.0); Bilirubin Total 0.4 mg/dL (0.2-1.0); C-Reactive Protein 13.7 mg/L (<3.00); Potassium 3.9 mmol/L (3.5-5.1); Protein, Total 6.6 g/dL (6.4-8.2)
[2022-06-26] MEDS: INSULIN -REGULAR HUMAN 50 UNIT/0.5 ML ML SQ SCH ×4 (07:30→20:47)
[2022-06-26] MEDS: POLYVINYL ALCOHOL 1.4% 15 ML EACH EYE SCH ×4 (09:00→20:47)
[2022-06-26] MEDS: levETIRAcetam 500 MG TAB PO SCH ×2 (09:00→20:47)
[2022-06-26] MEDS: FOLIC ACID 1 MG TABLET PO SCH (09:02)
[2022-06-26] MEDS: ASPIRIN 81 MG CHEWABLE TABLET PO SCH (09:02)
[2022-06-26] MEDS: PROPRANOLOL HCL 40 MG TAB PO SCH ×2 (09:03→20:46)
[2022-06-26] MEDS: GABAPENTIN 300 MG CAP PO SCH ×3 (09:03→20:45)
[2022-06-26] MEDS: CLOPIDOGREL 75 MG TABLET PO SCH (09:03)
--- NOTE | 2022-06-26 19:33 | P.PN ---
Date of Service: 06/23/22 Subjective Family is reluctant to take patient home without transfer. We have tried to call the [place] [facility] but they do not have bed availability. We are still working on the bed availability. I have also tried to get in touch with the nurses at neurology office. I waiting for a call back. Thewere supposed to call me in 24-48 hours. Physical Examination - Vital Signs reviewed - Physical Exam - General: Alert, In no distress, Oriented x3 Respiratory: Clear to auscultation bilaterally, Normal air movement Cardiovascular: No edema, Regular rate/rhythm, Normal S1 S2, No gallops, No rubs, No murmurs Gastrointestinal: Normal bowel sounds, Soft and benign, Non-distended, No tenderness, No rebound, No guarding Neurological: left sided facial weakness; left sided weakness Assessment And Plan - Assessment # Acute-Onset Neurologic Deficits (FN IV & V); Left sided weakness # Hypertension # Hyperlipidemia # Acute Kidney Injury # Type II Diabetes Mellitus # 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 -Spoke with Dr. 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 Mainly on the left side. No cord compression noted. Spinal cord lived with no significant abnormalities. -attempting transfer to [facility]; or outpt clinical appointments -outpt Geripsych evaluation
--- NOTE | 2022-06-26 19:36 | P.PN ---
Date of Service: 06/24/22 Subjective Patient continues to improve. Doing better. Waiting for call back from [facility] or the [facility]. Spoken to [facility] patient liaison. They have also confirmed that patient would be transferred but they have no bed availability. Continue with speech and physical therapy. Family has been made aware that patient had some seizure like changes on EEG and we will need to continue Keppra. They wanted Depakote discontinued because patient became very tearful whenever we started the Depakote. 06/23 Family is reluctant to take patient home without transfer. We [facility] call the [facility] but they do not have bed availability. We are still working on the bed availability. I have also tried to get in touch with the nurses at neurology office. I waiting for a call back. Thewere supposed to call me in 24-48 hours. Physical Examination - Vital Signs reviewed - Physical Exam - General: Alert, In no distress, Oriented x3 Respiratory: Clear to auscultation bilaterally, Normal air movement Cardiovascular: No edema, Regular rate/rhythm, Normal S1 S2, No gallops, No rubs, No murmurs Gastrointestinal: Normal bowel sounds, Soft and benign, Non-distended, No tenderness, No rebound, No guarding Neurological: left sided facial weakness-FN motor branches 4&5; left sided weakness Assessment And Plan - Assessment # Acute-Onset Neurologic Deficits (FN IV & V); Left sided weakness # Hypertension # Hyperlipidemia # Acute Kidney Injury # Type II Diabetes Mellitus # 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 -Spoke with Dr. 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 Mainly on the left side. No cord compression noted. Spinal cord lived with no significant abnormalities. -attempting transfer to [facility]; or outpt clinical appointments -outpt Geripsych evaluation
--- NOTE | 2022-06-26 19:47 | P.PN ---
Date of Service: 06/25/22 Subjective No new changes; waiting for transfer; Spoke with [place] [facility]- spoke with the [place] [facility] Nurse Adair; he was trying to get in touch with Neurology to move appointment up from 09/13 and move it to next week; unsuccessful in reaching Neurology physician but he stated that he should be able to get the appointment moved after he speaks with the Neurologist. 06/23 Family is reluctant to take patient home without transfer. We have tried to call the [place] hospital but they do not have bed availability. We are still working on the bed availability. I have also tried to get in touch with the nurses at neurology office. I waiting for a call back. There supposed to call me in 24-48 hours. 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 -Spoke with Dr. Chacon regarding EEG results and possible epileptogenic discha rges in the temporal lobe; continue Kera -patient also with also with psychosomatic component as he gets tearful at times; that is improved; he appears better motivated and is working with PT; -occasionally has vertigo upon ambulating; continue with PT -spoke with family and saw MRI cervical spine results. 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 Mainly on the left side. No cord compression noted. Spinal cord lived with no significant abnormalities. -attempting transfer to [facility]; or outpt clinical appointments -outpt Geripsych evaluation
--- NOTE | 2022-06-26 19:50 | P.PN ---
Date of Service: 06/26/22 Subjective Patient is doing well no new complaints. Clinical symptoms continue to improve. arranging for home health 06/25 No new changes; waiting for transfer; Spoke with [place] [facility]- spoke with the [place] [facility] Nurse Adair; he was trying to get in touch with Neurology to move appointment up from 09/13 and move it to next week; unsuccessful in reaching Neurology physician but he stated that he should be able to get the appointment moved after he speaks with the Neurologist. 06/23 Family is reluctant to take patient home without transfer. We have tried to call the [place] hospital but they do not have bed availability. We are still working on the bed availability. I have also tried to get in touch with the nurses at neurology office. I waiting for a call back. There supposed to call me in 24-48 hours. 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 -Spoke with Dr. Chacon regarding EEG results and possible epileptogenic discharges in the temporal lobe; continue Keppra -patient also with also with psychosomatic component as he gets tearful at times; that is improved; he appears better motivated and is working with PT; -occasionally has vertigo upon ambulating; continue with PT -spoke with family and saw MRI cervical spine results. 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 Mainly on the left side. No cord compression noted. Spinal cord lived with no significant abnormalities. -attempting transfer to [facility]; or outpt clinical appointments -outpt Geripsych evaluation
--- NOTE | 2022-06-26 19:56 | P.PN ---
Date of Service: 06/27/22 Subjective 06/25 No new changes; waiting for transfer; Spoke with [place] [facility]- spoke with the [place] Neurology Nurse Adair; he was trying to get in touch with Neurology to move appointment up from 09/13 and move it to next week; unsuccessful in reaching Neurology physician but he stated that he should be able to get the appointment moved after he speaks with the Neurologist. 06/23 Family is reluctant to take patient home without transfer. We have tried to call the [place] hospital but they do not have bed availability. We are still working on the bed availability. I have also tried to get in touch with the nurses at neurology office. I waiting for a call back. There supposed to call me in 24-48 hours. 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 -Spoke with Dr. Chacon regarding EEG results and possible epileptogenic discharges in the temporal lobe; [facility] -patient also with also with psychosomatic component as he gets tearful at times; that is improved; he appears better motivated and is working with PT; -occasionally has vertigo upon ambulating; continue with PT -spoke with family and saw MRI cervical spine results. 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 Mainly on the left side. No cord compression noted. Spinal cord lived with no significant abnormalities. -attempting transfer to [facility]; or outpt clinical appointments -outpt Geripsych evaluation
[2022-06-26] MEDS: ACETAMINOPHEN 500 MG TAB PO PRN (20:46)
[2022-06-26] MEDS: ATORVASTATIN 40 MG TAB PO SCH (20:47)
[2022-06-27] MEDS: LEVOTHYROXINE SOD 0.075 MG TAB PO SCH (07:03)
[2022-06-27] MEDS: INSULIN -REGULAR HUMAN 50 UNIT/0.5 ML ML SQ SCH ×4 (07:30→20:54)
[2022-06-27] MEDS: levETIRAcetam 500 MG TAB PO SCH ×2 (08:57→20:54)
[2022-06-27] MEDS: CETIRIZINE HCL 5 MG TABLET PO SCH (08:57)
[2022-06-27] MEDS: CLOPIDOGREL 75 MG TABLET PO SCH (08:57)
[2022-06-27] MEDS: FOLIC ACID 1 MG TABLET PO SCH (08:57)
[2022-06-27] MEDS: ASPIRIN 81 MG CHEWABLE TABLET PO SCH (08:57)
[2022-06-27] MEDS: GABAPENTIN 300 MG CAP PO SCH ×3 (08:57→20:54)
[2022-06-27] MEDS: POLYVINYL ALCOHOL 1.4% 15 ML EACH EYE SCH ×4 (09:00→20:55)
[2022-06-27] MEDS: PROPRANOLOL HCL 40 MG TAB PO SCH ×2 (09:08→20:53)
[2022-06-27] MEDS: ATORVASTATIN 40 MG TAB PO SCH (20:52)
[2022-06-28] MEDS: LEVOTHYROXINE SOD 0.075 MG TAB PO SCH (05:53)
[2022-06-28] MEDS: INSULIN -REGULAR HUMAN 50 UNIT/0.5 ML ML SQ SCH ×2 (07:30→11:30)
[2022-06-28] MEDS: CLOPIDOGREL 75 MG TABLET PO SCH (08:02)
[2022-06-28] MEDS: levETIRAcetam 500 MG TAB PO SCH (08:02)
[2022-06-28] MEDS: PROPRANOLOL HCL 40 MG TAB PO SCH (08:03)
[2022-06-28] MEDS: ASPIRIN 81 MG CHEWABLE TABLET PO SCH (08:03)
[2022-06-28] MEDS: CETIRIZINE HCL 5 MG TABLET PO SCH (08:03)
[2022-06-28] MEDS: GABAPENTIN 300 MG CAP PO SCH (08:03)
[2022-06-28] MEDS: FOLIC ACID 1 MG TABLET PO SCH (08:03)
[2022-06-28] MEDS: POLYVINYL ALCOHOL 1.4% 15 ML EACH EYE SCH (08:04)
[2022-06-28 08:12] VITALS: O2SAT 100
--- NOTE | 2022-06-28 08:25 | P.DS ---
Admission Date: 06/16/22 Discharge Date: 06/28/22 Disposition: ROUTINE DISCHARGE Discharge Condition: GOOD Reason for Admission: Rule out CVA Consultations: 1. 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 Connor Summers is a pleasant 77 year old male with a past medical history significant for hypertension and hyperlipidemia who was admitted to the [facility] on 06/15/2022 for left-sided facial weakness. He was admitted to the Medicine service. He was initially thought to have possibly had a cerebrovascular accident, but was outside of the window for tenecteplase. Initial CT head revealed, "no acute intracranial abnormality." CT head angiogram revealed, "no significant flow abnormality is detected." CT neck angiogram revealed, "no significant flow abnormality of the neck vessels is identified." MRI brain revealed, "no acute or subacute infarction change. No acute intracranial finding." MR head angiogram revealed, "MRA head examination shows no significant or suspicious finding." MRA neck angiogram revealed, "MRA neck examination shows no significant or suspicious finding." Transthoracic echcocardiogram revealed, "1. normal left ventricular ejection fraction 60-65% 2. normal wall motion 3. mild tricuspid regurgitation." Neurology was consulted and he was evaluated by Dr. Cuellar. It was felt that his symptoms were secondary to a seizure with Brian's paralysis. An EEG was obtained, which revealed, "this is an abnormal EEG due to a focus of sharp wave activity in the left temporal and central regions. further, the posterior dominant rhythm is mildly slow. these findings suggest the presence of a potentially epileptogenic lesion in the left temporal and central region superimposed on a mild diffuse disturbance in cerebral function." He recommended starting aspirin, folic acid, clopidogrel, atorvastatin, and levetiracetam. He did well with this regimen, however on 06/17/2021, he had a similar episode of transient alteration in mentation followed by confusion. A Stroke alert was activated and STAT CT head revealed, "no acute intracranial abnormality." Dr. Cuellar reviewed his case, and recommended that we administer tenecteplase since a cerebrovascular accident could not be definitively excluded and we had a documented "last known normal" within the window for tenecteplase. A repeat MRI brain revealed, "negative for acute CVA or other acute intracranial abnormality." CT head obtained 24 hours post-tenecteplase revealed, "no acute intracranial abnormality. No significant change from prior." On 06/19/2022, he had a similar episode, and another Stroke alert was activated. STAT CT head revealed, "no acute intracranial abnormality." Given that he had just received tenecteplase, we did not feel that a second dose was indicated. Dr. Cuellar recommended adding Depakote to his regimen. Over the course of his hospitalization, he had no recurrent episodes. He and his family requested that he be transferred to the [facility], and transfer was initiated on 06/21/2022. Transfer was not completed due to lack of bed availability at the [facility]. Given his clinical improvement, he felt well to be discharged home. With the assistance of case management, home health services were arranged. Dr. Cuellar has cleared him for discharge today with aspirin, atorvastatin, folic acid, clopidogrel, and levetiracetam. On 06/28/2022, he was seen on morning rounds and deemed medically stable for discharge. He was discharged with instructions to schedule follow-up appointments with his [facility]CP ([facility]) and with Neurology (Dr. Cuellar or [facility]). He was provided prescriptions for clopidogrel and levetiracetam. He and his family members were given the opportunity to ask questions and reported no further questions. Furthermore, all questions were answered to the best of my ability. A copy of this discharge summary will be sent to the above providers to facilitate continuity of care. Today, I personally spent 35 minutes on his case, of which greater than 50% of the time was spent in patient education, counseling, and coordination of care as described above. - Physical Exam - General: Alert, In no distress, Oriented x3 HEENT: Atraumatic, Mucous membr. moist/pink, EOMI, Sclerae nonicteric Neck: JVD not distended Respiratory: Clear to auscultation bilaterally, Normal air movement Cardiovascular: No edema, Regular rate/rhythm, Normal S1 S2, No gallops, No rubs, No murmurs Gastrointestinal: Normal bowel sounds, Soft and benign, Non-distended, No tenderness, No rebound, No guarding Musculoskeletal: No clubbing Integumentary: No rashes Neurological: Normal speech, Normal tone, Cranial nerves 3-12 intact, Normal affect, Abnormal strength (4+/5 strength in all extremities), Abnormal sensation (numbness in bilateral hands up to elbow and bilateral feet up to knees) NIH Stroke Scale - 1a. Level of consciousness: 0 - Alert; keenly responsive 1b. LOC questions: 0 - Both questions right 1c. LOC commands: 0 - Performs both tasks 2. Best Gaze: 0 - Normal 3. Visual: 0 - No visual loss 4. Facial Palsy: 0 - No asymmetry 5a. Motor left arm: 0 - No drift for 10 seconds 5b. Motor right arm: 0 - No drift for 10 seconds 6a. Motor left le - No drift for 5 seconds 6b. Motor right le - No drift for 5 seconds 7. Limb ataxia: 0 - No ataxia 8. Sensory: 1 - mild to moderate loss: can sense being touched 9. Best Language: 0 - Normal; no aphasia 10. Dysarthria: 0 - Normal 11. Extinction and Inattention: 0 - No abnormality 12. Distal motor function: 0 - No abnormality Total Score: 1 Vital Signs/Physical Exam: Temp Pulse Resp BP Pulse Ox 97.2 F 61 14 142/73 H 100 06/28/22 08:00 06/28/22 08:03 06/28/22 08:00 06/28/22 08:03 06/28/22 08:00 Laboratory Data at Discharge: WBC 6.00 K/uL (4.3-10.9) 06/26/22 06:05 Hgb 11.3 g/dL (13.6-17.9) L 06/26/22 06:05 Hct 33.0 % (39.6-49.0) L 06/26/22 06:05 Plt Count 165 K/uL (152-406) 06/26/22 06:05 PT 11.9 SECONDS (9.5-12.5) 06/15/22 13:00 INR 1.08 06/15/22 13:00 APTT 28.9 SECONDS (24.3-36.9) 06/15/22 13:00 Sodium 143 mmol/L (136-145) 06/26/22 06:05 Potassium 3.9 mmol/L (3.5-5.1) 06/26/22 06:05 BUN 15 mg/dL (7-18) 06/26/22 06:05 Creatinine 1.07 mg/dL (0.70-1.30) 06/26/22 06:05 Glucose 118 mg/dL (74-106) H 06/26/22 06:05 Phosphorus 2.6 mg/dL (2.5-4.9) 06/23/22 12:34 Magnesium 1.8 mg/dL (1.6-2.4) 06/23/22 12:34 Total Bilirubin 0.4 mg/dL (0.2-1.0) 06/26/22 06:05 AST 21 U/L (15-37) 06/26/22 06:05 ALT 32 U/L (16-61) 06/26/22 06:05 Alkaline Phosphatase 93 U/L (45-117) 06/26/22 06:05 Triglycerides 100 mg/dL (<150) 06/16/22 04:40 Cholesterol 85 mg/dL (<200) 06/16/22 04:40 HDL Cholesterol 36 mg/dL (40-60) L 06/16/22 04:40 Cholesterol/HDL Ratio 2.36 06/16/22 04:40 Home Medications: RX: Alogliptin Benzoate [Alogliptin] 12.5 mg PO DAILY 06/16/22 RX: Atorvastatin Calcium [Lipitor] 80 mg PO BEDTIME 06/16/22 RX: Calcium Carbonate [Tums Regular*] 1,000 tab PO BID 06/16/22 RX: Cetirizine HCl 10 mg PO DAILY 06/16/22 RX: Cholecalciferol (Vitamin D3) [Vitamin D3] 200 cap PO DAILY 06/16/22 RX: Cyanocobalamin [Vitamin B-12*] 1,000 mcg PO DAILY 06/16/22 RX: Fenofibrate [Tricor*] 48 mg PO DAILY 06/16/22 RX: Gabapentin 300 mg PO TID 06/16/22 RX: Levothyroxine Sodium [Synthroid] 75 mcg PO [id number] 06/16/22 RX: Lisinopril [Zestril] 20 tab PO DAILY 06/16/22 RX: Magnesium Oxide 420 tab PO DAILY 06/16/22 RX: Propranolol [Inderal LA*] 80 mg PO BID 06/16/22 RX: Aspirin Chewable [Aspirin Chewable*] 81 mg PO DAILY tab.chew 06/28/22 RX: Clopidogrel Bisulfate [Plavix*] 75 mg PO DAILY #30 tab 06/28/22 RX: Folic Acid 1 mg PO DAILY #1 06/28/22 RX: levETIRAcetam [Keppra*] 1,000 mg PO BID #120 tab 06/28/22 New Medications: RX: Folic Acid 1 mg PO DAILY #1 RX: levETIRAcetam [Keppra*] 1,000 mg PO BID #120 tab RX: Clopidogrel Bisulfate [Plavix*] 75 mg PO DAILY #30 tab Physician Discharge Instructions: 1. Please call and schedule a follow-up appointment with your PCP ([facility]) in 3-5 days 2. Please call and schedule a follow-up appointment with Neurology (Dr. Cuellar) in 3-5 days - Please do not drive or operate heavy machinery until you see and are cleared by Dr. Cuellar. Diet: Regular Activity: Ad vargas Followup: Dion Cuellar MD [ASSOCIATE-ACTIVE - CAN ADMIT] - (Call to schedule appointment.) Time spent managing pt's care (in minutes): 35
[2022-06-28 12:17] VITALS: BP 123/57; TEMP 97.4
== END 2022-06-28 12:42 | disposition home or self-care (01) | DRG 101 ==
LOC: ER 12:33 → ERHOLD 22:38 → 2ND 06-16 12:26 → OBSVTOIN 06-16 12:53 → 3RD-ICU 06-17 09:21 → 2ND 06-19 05:30
PROVIDERS: ADMIT Internal Medicine; ATTEND Internal Medicine
DX: G40.909 Epilepsy, unspecified, not intractable, without status epilepticus (principal); N17.9 Acute kidney failure, unspecified; G83.84 Todd's paralysis (postepileptic); E11.9 Type 2 diabetes mellitus without complications; I10 Essential (primary) hypertension; E78.5 Hyperlipidemia, unspecified; K76.9 Liver disease, unspecified; I07.1 Rheumatic tricuspid insufficiency; M48.02 Spinal stenosis, cervical region; M71.21 Synovial cyst of popliteal space [Baker], right knee; R29.710 NIHSS score 10; R42 Dizziness and giddiness; Z23 Encounter for immunization; Z88.5 Allergy status to narcotic agent; Z88.8 Allergy status to other drugs, medicaments and biological substances; Z79.82 Long term (current) use of aspirin; Z79.890 Hormone replacement therapy; Z79.899 Other long term (current) drug therapy; Z20.822 Contact with and (suspected) exposure to COVID-19
CPT/HCPCS: 36415; 70450; 70496; 70498; 70544; 70549; 70551; 70553; 71045; 71275; 80048; 80053; 80061; 80164; 82533; 82550; 82565; 82607; 82747; 82805; 82947; 83036; 83735; 84100; 84439; 84443; 84484; 85025; 85379; 85610; 85730; 86140; 87811; 90471; 90732; 92523; 92526; 93005; 93306; 93880; 93970; 93971; 95819; 97110; 97112; 97116; 97161; 97164; 97168; 97530; 99285; A9577; G0378; J0360; J1644; J1953; J2405; J3101; J7050; J7120; Q9967; U0003